=== PATIENT | male | born 1945 | race Caucasian/White ===

== ENCOUNTER → 2020-11-17 | Outpatient (CLI) | payer OTHER ==
--- NOTE | 2020-11-17 11:55 | XR ---
EXAMINATION TYPE: XR foot complete LT DATE OF EXAM: 11/17/2020 CLINICAL HISTORY: Pain worse first toe after contusion injury 2 weeks ago. TECHNIQUE: Frontal, lateral, and oblique images of the left foot are obtained. COMPARISON: None FINDINGS: There is subtle linear lucency consistent with comminuted subacute or healing nondisplaced fracture through the proximal phalanx first toe this is best appreciated on lateral view. Moderate to severe narrowing of first metatarsophalangeal joint with moderate lateral spurring. Tiny inferior calcaneal spur. Curvilinear calcification or ossification superior posterior calcaneus at the distal Achilles tendon insertion. Overlying soft tissue is unremarkable. IMPRESSION: There is healing or subacute nondisplaced fracture is suspected involving first proximal phalanx.
== END | disposition home or self-care (01) ==
LOC: RADXRMAIN 11:17
PROVIDERS: ATTEND Family Medicine
DX: S90.112A Contusion of left great toe without damage to nail, initial encounter (principal)

== ENCOUNTER → 2020-12-03 | Outpatient (CLI) | payer OTHER ==
--- NOTE | 2020-12-03 14:13 | XR ---
EXAMINATION TYPE: XR foot complete LT DATE OF EXAM: 12/03/2020 CLINICAL HISTORY: First proximal phalanx fracture TECHNIQUE: Frontal, lateral, and oblique images of the left foot are obtained. COMPARISON: 11/17/2020 FINDINGS: No significant change seen in the complex-appearing fracture of the proximal phalanx of the great toe. Degenerative changes of the first MTP are noted. IMPRESSION: No significant change seen in the complex-appearing fracture of the proximal phalanx of the great toe . Degenerative changes of the first MTP are noted.
== END | disposition home or self-care (01) ==
LOC: RADXRMAIN 13:50
PROVIDERS: ATTEND Family Medicine
DX: S92.415A Nondisplaced fracture of proximal phalanx of left great toe, initial encounter for closed fracture (principal); M19.072 Primary osteoarthritis, left ankle and foot

== ENCOUNTER → 2020-12-20 | Outpatient (CLI) | payer OTHER ==
--- NOTE | 2020-12-20 13:17 | XR ---
EXAMINATION TYPE: XR foot complete LT DATE OF EXAM: 12/20/2020 CLINICAL HISTORY: Fracture first proximal metatarsal 6 weeks ago TECHNIQUE: Frontal, lateral, and oblique images of the left foot are obtained. COMPARISON: 12/03/2020 FINDINGS: There is bony remodeling of the proximal phalanx of the great toe with fracture lines still present a nd with likely intra-articular extension into the interphalangeal joint. Degenerative changes are again seen in the first metatarsal-phalangeal joint. IMPRESSION: No significant change since the prior examination with fracture of the proximal phalanx of the great toe.
== END | disposition home or self-care (01) ==
LOC: RADXRMAIN 12:42
PROVIDERS: ATTEND Family Medicine
DX: S92.411A Displaced fracture of proximal phalanx of right great toe, initial encounter for closed fracture (principal)

== ENCOUNTER 2022-04-22 18:00 | Inpatient (IN) | payer MEDICARE, OTHER ==
[2022-04-22 18:48] LABS: Basophils # (A) 0.1 k/uL (0-0.2); Basophils % (A) 1 %; Eosinophils # (A) 0.1 k/uL (0-0.7); Eosinophils % (A) 1 %; HCT 50.1 % (39.0-53.0); HGB 16.7 gm/dL (13.0-17.5); Lymphocytes # (A) 0.6 k/uL (1.0-4.8); Lymphocytes % (A) 5 %; MCH 30.9 pg (25.0-35.0); MCHC 33.3 g/dL (31.0-37.0); MCV 92.6 fL (80.0-100.0); Monocytes # (A) 0.5 k/uL (0-1.0); Monocytes % (A) 4 %; Neutrophils # (A) 11.5 k/uL (1.3-7.7); Neutrophils % (A) 89 %; Platelet Count 367 k/uL (150-450); RBC 5.41 m/uL (4.30-5.90); RDW 13.3 % (11.5-15.5); WBC 12.9 k/uL (3.8-10.6)
[2022-04-22 18:57] LABS: ALT 29 U/L (4-49); AST 29 U/L (17-59); African American GFR (CKD) >90 (>60 ml/min/1.73 sqM); Albumin 4.1 g/dL (3.5-5.0); Alkaline Phosphatase 82 U/L (38-126); Anion Gap 9 mmol/L; Blood Urea Nitrogen 12 mg/dL (9-20); Calcium 9.6 mg/dL (8.4-10.2); Carbon Dioxide 25 mmol/L (22-30); Chloride 105 mmol/L (98-107); Glucose 123 mg/dL (74-99); Non-African American GFR(CKD) 81 (>60 ml/min/1.73 sqM); Potassium 4.1 mmol/L (3.5-5.1); Sodium 139 mmol/L (137-145); Total Bilirubin 0.6 mg/dL (0.2-1.3); Total Protein 7.2 g/dL (6.3-8.2)
[2022-04-22 19:01] LABS: Partial Thromboplastin Time 25.5 sec (22.0-30.0); Prothrombin Time 11.1 sec (9.0-12.0)
--- NOTE | 2022-04-22 19:02 | XR ---
EXAMINATION TYPE: XR chest 2V DATE OF EXAM: 04/22/2022 COMPARISON: NONE HISTORY: Difficulty breathing TECHNIQUE: 2 views FINDINGS: There is some pleural reaction and atelectasis at the lung bases. There are small pleural e ffusions. No definite heart failure. Heart appears slightly enlarged. There are chest leads. IMPRESSION: Pleural fluid and reaction and atelectasis at the lung bases is new compared to old exam. No definite heart failure.
[2022-04-22] MEDS ORDERED: NALOXONE 0.4 MG/ML 1 ML VIAL IV PRN (22:02)
--- NOTE | 2022-04-22 22:02 | ED ---
SOB HPI - General Chief Complaint: Shortness of Breath Stated Complaint: SOB Time Seen by Provider: 04/22/22 18:02 Source: EMS Mode of arrival: EMS - History of Present Illness Initial Comments: 77-year-old male with enlarged prostate presents to the emergency department reporting exertional shortness of breath. He reports that the symptoms have been progressive for the past several weeks. 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 States that he cannot get up and ambulate a few steps without becoming short of breath. He reported to EMS that he had some chest pain however denies any chest pain to me. Did have some nausea earlier today. He denies previous history of cardiac or pulmonary issues. He saw his primary care 1.5 weeks ago for these symptoms. He has never had a stress test or an ultrasound of his heart. Patient is not a smoker. No fevers, chills or cough. No other alleviating, precipitating modifying factors - Related Data Home Medications Medication Instructions Recorded Confirmed Finasteride [Proscar] 5 mg PO DAILY 04/07/15 04/23/22 Tamsulosin HCl [Flomax] 0.4 mg PO DAILY 04/07/15 04/23/22 ALPRAZolam [Xanax] 0.5 mg PO HS PRN 04/23/22 04/23/22 Allergies Allergy/AdvReac Type Severity Reaction Status Date / Time Penicillins Allergy Unknown Verified 04/23/22 12:31 Childhood Review of Systems ROS Statement: Those systems with pertinent positive or pertinent negative responses have been documented in the HPI. ROS Other: All systems not noted in ROS Statement are negative. Past Medical History Past Medical History: No Reported History Additional Past Medical History / Comment(s): enlarged prostate History of Any Multi-Drug Resistant Organisms: None Reported Past Surgical History: Hernia Repair Past Psychological History: No Psychological Hx Reported Smoking Status: Former smoker Past Alcohol Use History: Occasional Past Drug Use History: None Reported - Past Family History Father History Unknown: Yes Mother History Unknown: Yes General Exam General appearance: alert, in no apparent distress Head exam: Present: atraumatic, normocephalic, normal inspection Eye exam: Present: normal appearance, PERRL, EOMI. Absent: scleral icterus, conjunctival injection, periorbital swelling ENT exam: Present: normal exam, mucous membranes moist Neck exam: Present: normal inspection. Absent: tenderness, meningismus, ly mphadenopathy Respiratory exam: Present: normal lung sounds bilaterally. Absent: respiratory distress, wheezes, rales, rhonchi, stridor Cardiovascular Exam: Present: regular rate, normal rhythm, normal heart sounds. Absent: systolic murmur, diastolic murmur, rubs, gallop, clicks GI/Abdominal exam: Present: soft, normal bowel sounds. Absent: distended, tenderness, guarding, rebound, rigid Extremities exam: Present: normal inspection, full ROM, normal capillary refill. Absent: tenderness, pedal edema, joint swelling, calf tenderness Back exam: Present: normal inspection Neurological exam: Present: alert, oriented X3, CN II-XII intact Psychiatric exam: Present: normal affect, normal mood Skin exam: Present: warm, dry, intact, normal color. Absent: rash Course Vital Signs 04/22/22 04/22/22 04/22/22 18:03 18:55 19:00 Temperature 99.0 F Pulse Rate 92 82 Pulse Rate [ Pulse Oximetery ] Respiratory 18 18 18 Rate Blood Pressure 193/96 168/86 Blood Pressure [Right Arm] O2 Sat by Pulse 95 95 Oximetry 04/22/22 04/22/22 04/23/22 20:39 22:56 02:30 Temperature 97.9 F Pulse Rate 85 72 72 Pulse Rate [ Pulse Oximetery ] Respiratory 18 18 18 Rate Blood Pressure 175/83 161/70 170/86 Blood Pressure [Right Arm] O2 Sat by Pulse 95 98 95 Oximetry 04/23/22 04/23/22 04/23/22 06:26 09:44 10:03 Temperature Pulse Rate 78 78 80 Pulse Rate [ Pulse Oximetery ] Respiratory 18 18 18 Rate Blood Pressure 186/90 Blood Pressure [Right Arm] O2 Sat by Pulse 99 96 98 Oximetry 04/23/22 04/23/22 04/23/22 12:00 14:00 16:00 Temperature 97.9 F Pulse Rate Pulse Rate [ 88 80 80 Pulse Oximetery ] Respiratory 18 16 16 Rate Blood Pressure Blood Pressure 185/92 182/95 [Right Arm] O2 Sat by Pulse 94 L 97 Oximetry Medical Decision Making - Medical Decision Making Upon arrival patient was placed into room 5. There are history of physical exam was performed. Patient placed on continuous pulse ox and cardiac monitoring. 12-lead EKG was obtained which demonstrates a left bundle branch block. Unknown if this is new for the patient. IV access was established laboratory studies were conducted. They are reviewed to demonstrate a troponin of 0.042. Influenza ankle are negative. Chest x-ray demonstrates pleural fluid and reaction and atelectasis at the lung bases. These results are discussed with the patient. He was given a full dose aspirin. Recommended admission order to trend his troponins throat the patient was agreeable. Additionally we'll order an echo and cardiology consultation. Spoke with Dr. Cook who agreed to admit the patient - Lab Data Result diagrams: 04/24/22 10:52 04/24/22 10:52 Lab Results 04/22/22 04/22/22 04/22/22 Range/Units 18:36 18:36 18:36 WBC 12.9 H (3.8-10.6) k/uL RBC 5.41 (4.30-5.90) m/uL Hgb 16.7 (13.0-17.5) gm/dL Hct 50.1 (39.0-53.0) % MCV 92.6 (80.0-100.0) fL MCH 30.9 (25.0-35.0) pg MCHC 33.3 (31.0-37.0) g/dL RDW 13.3 (11.5-15.5) % Plt Count 367 (150-450) k/uL MPV 7.0 Neutrophils % 89 % Lymphocytes % 5 % Monocytes % 4 % Eosinophils % 1 % Basophils % 1 % Neutrophils # 11.5 H (1.3-7.7) k/uL Lymphocytes # 0.6 L (1.0-4.8) k/uL Monocytes # 0.5 (0-1.0) k/uL Eosinophils # 0.1 (0-0.7) k/uL Basophils # 0.1 (0-0.2) k/uL PT 11.1 (9.0-12.0) sec INR 1.0 (<1.2) APTT 25.5 (22.0-30.0) sec D-Dimer 0.42 (<0.60) mg/L FEU Sodium 139 (137-145) mmol/L Potassium 4.1 (3.5-5.1) mmol/L Chloride 105 (98-107) mmol/L Carbon Dioxide 25 (22-30) mmol/L Anion Gap 9 mmol/L BUN 12 (9-20) mg/dL Creatinine 0.90 (0.66-1.25) mg/dL Est GFR (CKD-EPI)AfAm >90 (>60 ml/min/1.73 sqM) Est GFR (CKD-EPI)NonAf 81 (>60 ml/min/1.73 sqM) Glucose 123 H (74-99) mg/dL Plasma Lactic Acid Bronson (0.7-2.0) mmol/L Calcium 9.6 (8.4-10.2) mg/dL Magnesium 2.0 (1.6-2.3) mg/dL Total Bilirubin 0.6 (0.2-1.3) mg/dL AST 29 (17-59) U/L ALT 29 (4-49) U/L Alkaline Phosphatase 82 (38-126) U/L Troponin I (0.000-0.034) ng/mL NT-Pro-B Natriuret Pep pg/mL Total Protein 7.2 (6.3-8.2) g/dL Albumin 4.1 (3.5-5.0) g/dL Coronavirus (PCR) (Not Detectd) Influenza Type A RNA (Not Detectd) Influenza Type B (PCR) (Not Detectd) 04/22/22 04/22/22 04/22/22 Range/Units 18:36 18:36 18:36 WBC (3.8-10.6) k/uL RBC (4.30-5.90) m/uL Hgb (13.0-17.5) gm/dL Hct (39.0-53.0) % MCV (80.0-100.0) fL MCH (25.0-35.0) pg MCHC (31.0-37.0) g/dL RDW (11.5-15.5) % Plt Count (150-450) k/uL MPV Neutrophils % % Lymphocytes % % Monocytes % % Eosinophils % % Basophils % % Neutrophils # (1.3-7.7) k/uL Lymphocytes # (1.0-4.8) k/uL Monocytes # (0-1.0) k/uL Eosinophils # (0-0.7) k/uL Basophils # (0-0.2) k/uL PT (9.0-12.0) sec INR (<1.2) APTT (22.0-30.0) sec D-Dimer (<0.60) mg/L FEU Sodium (137-145) mmol/L Potassium (3.5-5.1) mmol/L Chloride (98-107) mmol/L Carbon Dioxide (22-30) mmol/L Anion Gap mmol/L BUN (9-20) mg/dL Creatinine (0.66-1.25) mg/dL Est GFR (CKD-EPI)AfAm (>60 ml/min/1.73 sqM) Est GFR (CKD-EPI)NonAf (>60 ml/min/1.73 sqM) Glucose (74-99) mg/dL Plasma Lactic Acid Bronson 1.4 (0.7-2.0) mmol/L Calcium (8.4-10.2) mg/dL Magnesium (1.6-2.3) mg/dL Total Bilirubin (0.2-1.3) mg/dL AST (17-59) U/L ALT (4-49) U/L Alkaline Phosphatase (38-126) U/L Troponin I 0.042 H* (0.000-0.034) ng/mL NT-Pro-B Natriuret Pep 1450 pg/mL Total Protein (6.3-8.2) g/dL Albumin (3.5-5.0) g/dL Coronavirus (PCR) (Not Detectd) Influenza Type A RNA (Not Detectd) Influenza Type B (PCR) (Not Detectd) 04/22/22 04/22/22 Range/Units 18:36 18:36 WBC (3.8-10.6) k/uL RBC (4.30-5.90) m/uL Hgb (13.0-17.5) gm/dL Hct (39.0-53.0) % MCV (80.0-100.0) fL MCH (25.0-35.0) pg MCHC (31.0-37.0) g/dL RDW (11.5-15.5) % Plt Count (150-450) k/uL MPV Neutrophils % % Lymphocytes % % Monocytes % % Eosinophils % % Basophils % % Neutrophils # (1.3-7.7) k/uL Lymphocytes # (1.0-4.8) k/uL Monocytes # (0-1.0) k/uL Eosinophils # (0-0.7) k/uL Basophils # (0-0.2) k/uL PT (9.0-12.0) sec INR (<1.2) APTT (22.0-30.0) sec D-Dimer (<0.60) mg/L FEU Sodium (137-145) mmol/L Potassium (3.5-5.1) mmol/L Chloride (98-107) mmol/L Carbon Dioxide (22-30) mmol/L Anion Gap mmol/L BUN (9-20) mg/dL Creatinine (0.66-1.25) mg/dL Est GFR (CKD-EPI)AfAm (>60 ml/min/1.73 sqM) Est GFR (CKD-EPI)NonAf (>60 ml/min/1.73 sqM) Glucose (74-99) mg/dL Plasma Lactic Acid Bronson (0.7-2.0) mmol/L Calcium (8.4-10.2) mg/dL Magnesium (1.6-2.3) mg/dL Total Bilirubin (0.2-1.3) mg/dL AST (17-59) U/L ALT (4-49) U/L Alkaline Phosphatase (38-126) U/L Troponin I (0.000-0.034) ng/mL NT-Pro-B Natriuret Pep pg/mL Total Protein (6.3-8.2) g/dL Albumin (3.5-5.0) g/dL Coronavirus (PCR) Not Detected (Not Detectd) Influenza Type A RNA Not Detected (Not Detectd) Influenza Type B (PCR) Not Detected (Not Detectd) - EKG Data EKG Comments: EKG demonstrates sinus rhythm with a rate of 87. W[place] interval 219. QRS 153. QTC of 445. There is a left bundle branch block. Negative for sgarbossa criteria Disposition Clinical Impression: NSTEMI (non-ST elevated myocardial infarction), Exertional dyspnea, LBBB (left bundle branch block) Disposition: ADMITTED IP TO THIS HOSP Condition: Stable Is patient prescribed a controlled substance at d/c from ED?: No Time of Disposition: 22:02 Decision to Admit Reason: Admit from EC Decision Date: 04/22/22 Decision Time: 22:02
[2022-04-22] MEDS ORDERED: ASPIRIN 81 MG PO STA (22:04)
[2022-04-23 01:37] LABS: Basophils # (A) 0.1 k/uL (0-0.2); Basophils % (A) 1 %; Eosinophils # (A) 0.1 k/uL (0-0.7); Eosinophils % (A) 1 %; HCT 44.8 % (39.0-53.0); Lymphocytes % (A) 10 %; MCH 31.1 pg (25.0-35.0); MCHC 33.4 g/dL (31.0-37.0); Mean Platelet Volume 7.4; Monocytes # (A) 0.7 k/uL (0-1.0); Monocytes % (A) 7 %; Neutrophils # (A) 8.6 k/uL (1.3-7.7); Neutrophils % (A) 80 %; Platelet Count 362 k/uL (150-450); RBC 4.82 m/uL (4.30-5.90); RDW 13.3 % (11.5-15.5); WBC 10.7 k/uL (3.8-10.6)
[2022-04-23 01:46] LABS: African American GFR (CKD) >90 (>60 ml/min/1.73 sqM); Anion Gap 6 mmol/L; Blood Urea Nitrogen 12 mg/dL (9-20); Calcium 9.1 mg/dL (8.4-10.2); Carbon Dioxide 26 mmol/L (22-30); Chloride 107 mmol/L (98-107); Glucose 101 mg/dL (74-99); Non-African American GFR(CKD) 81 (>60 ml/min/1.73 sqM); Potassium 3.6 mmol/L (3.5-5.1); Sodium 139 mmol/L (137-145)
[2022-04-23] MEDS ORDERED: CAFFEINE CITRATE 60 MG/3 ML VIAL IV PRN (09:43)
[2022-04-23] MEDS ORDERED: AMINOPHYLLINE 500 MG/20 ML VIAL IV PRN (09:43)
[2022-04-23] MEDS: FUROSEMIDE 10 MG/ML 2 ML VIAL IV SCH (09:54)
[2022-04-23] MEDS ORDERED: Potassium Replacement Protocol 1 EACH MISC MISCELLANE PRN (14:49)
[2022-04-23] MEDS ORDERED: POTASSIUM CHLORIDE ER 20 MEQ TAB.ER PO SCH (15:00)
--- NOTE | 2022-04-23 16:08 | P.CRDCN ---
History of Present Illness Consult date: 04/23/22 History of present illness: History of present illness: This is a 77-year-old male with no previous cardiac history. Past medical history of benign prostatic hypertrophy and follows with urologist at [place]. He recently had medication changes finasteride versus Flomax. Patient complains of exertional dyspnea, chest pain and nausea. He states he has tightness in his chest with shortness of breath at the same time. He states his shortness of breath has been going on for the past 1-1/2 weeks along with cough and clear sputum production, nasal drainage. He denies chest pain at rest and denies orthopnea. He recently saw Dr. Gerber and started on Xanax. 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 Patient has a remote history of tobacco use and quit 40 years ago. EKG sinus rhythm with first-degree block and left bundle branch block WBC 12.9, hemoglobin 16.7. D-dimer 0.42. Creatinine 0.9. Troponin 0.042, 0.049, 0.045. ProBNP 1450 Rotavirus PCR not detected. Influenza a not detected. Influenza B not detected. Chest x-ray revealed pleural fluid reactive and atelectasis at lung bases. No definite heart failure Review Of Systems: Constitutional: No fever, no chills. No weakness, fatigue or lethargy. EENT: No headache. No dizziness. Reports nasal drainage. Lungs: Reports shortness of breath, reports cough, reports sputum production. No wheezing. Cardiovascular: No chest pain, no lower extremity edema. No palpitations. No paroxysmal nocturnal dyspnea. No orthopnea. No lightheadedness or dizziness. No syncopal episodes. Abdominal: No abdominal pain. No nausea, vomiting. No diarrhea. No constipation. No bloody or tarry stools.. No loss of appetite. Genitourinary: No dysuria.. No urinary retention. Musculoskeletal: No myalgias. No muscle weakness, no gait dysfunction, no frequent falls. No back pain. No neck pain. Integumentary: No wounds, no lesions. No rash or pruritus. No unusual bruising. Neurologic: No aphasia. No facial droop. No change in mentation. No head injury. No headache. No paralysis. No paresthesia. Psychiatric: No depression. No anxiety. Endocrine: No abnormal blood sugars. Physical examination: Gen: This is a 77-year-old male. He is coughing and sneezing frequently. VS: Afebrile, blood pressure 185/92, pulse ox 94% on room air. Heart rate in the 80s. HEENT: Head is atraumatic, normocephalic. Pupils equal, round. Sclerae is anicteric. NECK: Supple. No JVD. No lymphadenopathy. No thyromegaly. LUNGS: Few scattered expiratory wheeze. No intercostal retractions. HEART: Regular rate and rhythm. No murmur. ABDOMEN: Soft. Bowel sounds are present. No masses. No tenderness. EXTREMITIES: No pedal edema. No calf tenderness. Dorsalis pedis +2 bilaterally. NEUROLOGICAL: Patient is awake, alert and oriented x3. Cranial nerves 2 through 12 are grossly intact. Assessment: Elevated troponins Mild acute diastolic heart failure Hypertension Upper respiratory symptoms Plan: Patient will be started on Lasix 20 mg IV daily Obtain Lexiscan Cardiolite stress test tomorrow Obtain 2-D echocardiogram and Doppler study to assess cardiac structure and function Further recommendations to follow based upon clinical course Patient will follow-up with Dr. Dominick Christianson at the time of discharge. Thank you kindly for this consultation. Nurse practitioner note has been reviewed, I agree with documented findings and plan of care. Patient was seen and examined. Past Medical History Past Medical History: No Reported History Additional Past Medical History / Comment(s): enlarged prostate History of Any Multi-Drug Resistant Organisms: None Reported Past Surgical History: Hernia Repair Past Psychological History: No Psychological Hx Reported Smoking Status: Former smoker Past Alcohol Use History: Occasional Past Drug Use History: None Reported - Past Family History Father History Unknown: Yes Mother History Unknown: Yes Medications and Allergies Home Medications Medication Instructions Recorded Confirmed Type Finasteride [Proscar] 5 mg PO DAILY 04/07/15 04/23/22 History Tamsulosin HCl [Flomax] 0.4 mg PO DAILY 04/07/15 04/23/22 History ALPRAZolam [Xanax] 0.5 mg PO HS PRN 04/23/22 04/23/22 History Allergies Allergy/AdvReac Type Severity Reaction Status Date / Time Penicillins Allergy Unknown Verified 04/23/22 12:31 Childhood Physical Exam Vitals: Vital Signs Temp Pulse Resp BP Pulse Ox 04/23/22 06:26 78 18 99 04/23/22 02:30 97.9 F 72 18 170/86 95 04/22/22 22:56 72 18 161/70 98 04/22/22 20:39 85 18 175/83 95 04/22/22 19:00 82 18 168/86 95 04/22/22 18:55 18 04/22/22 18:03 99.0 F 92 18 193/96 95 Intake and Output 04/22/22 04/23/22 04/23/22 22:59 06:59 14:59 Other: Weight 78.018 kg Results 04/23/22 01:21 04/23/22 01:21 Cardiac Enzymes 04/22/22 04/22/22 04/22/22 Range/Units 18:36 18:36 22:35 AST 29 (17-59) U/L Troponin I 0.042 H* 0.049 H* (0.000-0.034) ng/mL 04/23/22 Range/Units 01:21 AST (17-59) U/L Troponin I 0.045 H* (0.000-0.034) ng/mL Coagulation 04/22/22 Range/Units 18:36 PT 11.1 (9.0-12.0) sec APTT 25.5 (22.0-30.0) sec CBC 04/22/22 04/23/22 Range/Units 18:36 01:21 WBC 12.9 H 10.7 H (3.8-10.6) k/uL RBC 5.41 4.82 (4.30-5.90) m/uL Hgb 16.7 15.0 (13.0-17.5) gm/dL Hct 50.1 44.8 (39.0-53.0) % Plt Count 367 362 (150-450) k/uL Comprehensive Metabolic Panel 04/22/22 04/23/22 Range/Units 18:36 01:21 Sodium 139 139 (137-145) mmol/L Potassium 4.1 3.6 (3.5-5.1) mmol/L Chloride 105 107 (98-107) mmol/L Carbon Dioxide 25 26 (22-30) mmol/L BUN 12 12 (9-20) mg/dL Creatinine 0.90 0.90 (0.66-1.25) mg/dL Glucose 123 H 101 H (74-99) mg/dL Calcium 9.6 9.1 (8.4-10.2) mg/dL AST 29 (17-59) U/L ALT 29 (4-49) U/L Alkaline Phosphatase 82 (38-126) U/L Total Protein 7.2 (6.3-8.2) g/dL Albumin 4.1 (3.5-5.0) g/dL Current Medications Generic Name Dose Route Start Last Admin Trade Name Freq PRN Reason Stop Dose Admin Naloxone HCl 0.2 mg 04/22/22 22:02 Naloxone 0.4 Mg/Ml 1 Ml Vial IV Q2M PRN Opioid Reversal Intake and Output 04/22/22 04/23/22 04/23/22 22:59 06:59 14:59 Other: Weight 78.018 kg 04/23/22 01:21 04/23/22 01:21
[2022-04-23] MEDS: lisinopriL 5 MG TAB PO SCH (16:40)
--- NOTE | 2022-04-23 21:40 | P.HPIM ---
History of Present Illness H&P Date: 04/23/22 Chief Complaint: Exertional shortness of breath Patient is a 77-year-old male with a known history of enlarged prostate presents to ER with complaints of exertional shortness of breath. Patient has been having symptoms for the past 1/2-week. Patient states that he was seen by urologist and was started on terazosin. Patient thought his symptoms are due to his medication. He has been having shortness of breath and wheezing. Shortness of breath With minimal exertion and walking. 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 Terazosin was discontinued about few days ago and was started on Flomax currently. Patient is still having exertional shortness of breath and presented to ER for further evaluation. Denies any complaints of chest pain. Was nauseated. No chills or vomiting. Denies any orthopnea or PND. No leg swelling. Patient was seen by his primary care physician who started on Xanax recently. No prior history of coronary artery disease. EKG showed first-degree heart block and left bundle branch block. Old EKG not available for comparison. Chest x-ray showed pleural fluid and reaction and atelectasis at the lung bases is new compared to old exam. No definite heart failure. Laboratory data showed WBC 12.9 hemoglobin 16.7 and platelets 367 D-dimer is 0.42 Sodium 139 potassium 4.1 chloride 105 bicarb is 25 BUN 12 and creatinine 0.9 and blood sugar is 123 Liver enzymes are elevated Troponin 0.042, 0.049 and 0.045 proBNP is 1450 Coronavirus PCR not detected. Review of Systems Constitutional: Patient denies any fever or chills . no Generalized weakness. Abdomen: Patient denied any nausea or vomiting or abd. pain Cardiovascular: Patient does have exertional shortness of breath. No chest pain. No palpitations no leg swelling. Respiratory: patient denied any cough . no sputum production. Positive for shortness of breath Neurologic: Patient denied any numbness or tingling headache. Musculoskeletal: Patient denies any complaints of joint swelling or deformity. Skin: Negative Psychiatric: Negative Endocrine: No heat or cold intolerance. No recent weight gain. Genitourinary: No dysuria or hematuria. All other 14 point ROS negative except the above Past Medical History Past Medical History: No Reported History Additional Past Medical History / Comment(s): enlarged prostate History of Any Multi-Drug Resistant Organisms: None Reported Past Surgical History: Hernia Repair Past Psychological History: No Psychological Hx Reported Smoking Status: Former smoker Past Alcohol Use History: Occasional Past Drug Use History: None Reported - Past Family History Father History Unknown: Yes Mother History Unknown: Yes Medications and Allergies Home Medications Medication Instructions Recorded Confirmed Type Finasteride [Proscar] 5 mg PO DAILY 04/07/15 04/23/22 History Tamsulosin HCl [Flomax] 0.4 mg PO DAILY 04/07/15 04/23/22 History ALPRAZolam [Xanax] 0.5 mg PO HS PRN 04/23/22 04/23/22 History Allergies Allergy/AdvReac Type Severity Reaction Status Date / Time Penicillins Allergy Unknown Verified 04/23/22 12:31 Childhood Physical Exam Vitals: Vital Signs Temp Pulse Resp BP Pulse Ox 04/23/22 10:03 80 18 186/90 98 04/23/22 09:44 78 18 96 04/23/22 06:26 78 18 99 04/23/22 02:30 97.9 F 72 18 170/86 95 04/22/22 22:56 72 18 161/70 98 04/22/22 20:39 85 18 175/83 95 04/22/22 19:00 82 18 168/86 95 04/22/22 18:55 18 04/22/22 18:03 99.0 F 92 18 193/96 95 Intake and Output 04/22/22 04/23/22 04/23/22 22:59 06:59 14:59 Other: Weight 78.018 kg PHYSICAL EXAMINATION: Patient is lying in the bed comfortably, no acute distress, awake alert and oriented.. HEENT: Normocephalic. Neck is supple. Pupils reactive. Nostrils clear. Oral cavity is moist. Neck reveals no JVD, carotid bruits, or thyromegaly. CHEST EXAMINATION: Trachea is central. Symmetrical expansion. Lung mcclellan clear to auscultation and percussion. CARDIAC: Normal S1, S2 with no gallops. No murmurs ABDOMEN: Soft. Bowel sounds present. Nontender. No organomegaly. No abdominal bruits. Extremities: reveal no edema. No clubbing or cyanosis Neurologically awake, alert, oriented x3 with well-coordinated movements. No focal deficits noted Skin: No rash or skin lesions. Psychiatric: Coperative. Nonsuicidal, Musculoskeletal: No joint swelling or deformity. Normal range of motion. Results CBC & Chem 7: 04/23/22 01:21 04/23/22 01:21 Labs: Abnormal Lab Results - Last 24 Hours (Table) 04/22/22 04/22/22 04/22/22 Range/Units 18:36 18:36 18:36 WBC 12.9 H (3.8-10.6) k/uL Neutrophils # 11.5 H (1.3-7.7) k/uL Lymphocytes # 0.6 L (1.0-4.8) k/uL Glucose 123 H (74-99) mg/dL Troponin I 0.042 H* (0.000-0.034) ng/mL 04/22/22 04/23/22 04/23/22 Range/Units 22:35 01:21 01:21 WBC 10.7 H (3.8-10.6) k/uL Neutrophils # 8.6 H (1.3-7.7) k/uL Lymphocytes # (1.0-4.8) k/uL Glucose (74-99) mg/dL Troponin I 0.049 H* 0.045 H* (0.000-0.034) ng/mL 04/23/22 Range/Units 01:21 WBC (3.8-10.6) k/uL Neutrophils # (1.3-7.7) k/uL Lymphocytes # (1.0-4.8) k/uL Glucose 101 H (74-99) mg/dL Troponin I (0.000-0.034) ng/mL Thrombosis Risk Factor Assmnt - DVT/VTE Prophylaxis DVT/VTE Prophylaxis: Pharmacologic Prophylaxis ordered Assessment and Plan Assessment: Exertional shortness of breath with elevated troponin level. Possible non-ST elevated MD cannot be excluded. Mild acute CHF. Ejection fraction not known Elevated blood pressure. No prior history of hypertension diagnosis BPH DVT prophylaxis Plan: Patient will be continued on telemetry monitoring. Serial EKG and troponin x3. Patient was started on heparin drip. Troponin level plateaued. Patient was seen by cardiology and recommends Lexiscan stress test., Which is scheduled tomorrow. Continue to follow closely. Discussed with the patient and his at bedside in detail Time with Patient: Greater than 30
[2022-04-23] MEDS: ALPRAZolam 0.5 MG TAB PO PRN (22:08)
[2022-04-23] MEDS: HEPARIN SODIUM,PORCINE/PF 5,000 UNIT/0.5 ML SYRINGE SQ SCH (22:14)
[2022-04-24] MEDS ORDERED: RIVAROXABAN 20 MG TAB PO SCH (01:35)
[2022-04-24] MEDS: METOPROLOL SUCCINATE (ER) 50 MG TAB.ER.24H PO SCH ×2 (01:43→08:27)
[2022-04-24] MEDS ORDERED: REGADENOSON 0.4 MG/5 ML SYRINGE IV PRN (07:00)
[2022-04-24] MEDS: HEPARIN SODIUM,PORCINE/PF 5,000 UNIT/0.5 ML SYRINGE SQ SCH (07:56)
[2022-04-24] MEDS: FUROSEMIDE 10 MG/ML 2 ML VIAL IV SCH (08:27)
[2022-04-24] MEDS: TAMSULOSIN 0.4 MG CAP.ER.24H PO SCH (08:27)
[2022-04-24] MEDS: lisinopriL 5 MG TAB PO SCH (08:27)
[2022-04-24] MEDS ORDERED: HEPARIN SODIUM 1,000 UN/ML (10ML VL) IV ONE (10:19)
[2022-04-24] MEDS ORDERED: HEPARIN SODIUM 1,000 UN/ML (10ML VL) IV PRN (10:19)
[2022-04-24] MEDS: HEPARIN SOD,PORK IN 0.45% NACL 25,000 UNIT in 0.45% NACL 1 250ML.BAG IV SCH (11:00)
[2022-04-24] MEDS ORDERED: ALPRAZolam 0.5 MG TAB PO PRN (11:23)
[2022-04-24] MEDS ORDERED: NITROGLYCERIN SL TABS 0.4 MG TAB SUBLINGUAL PRN (11:23)
[2022-04-24] MEDS ORDERED: ALPRAZolam 0.25 MG TAB PO PRN (11:23)
[2022-04-24 11:36] LABS: Basophils # (A) 0.1 k/uL (0-0.2); Basophils % (A) 1 %; Eosinophils # (A) 0.2 k/uL (0-0.7); Eosinophils % (A) 2 %; HCT 47.7 % (39.0-53.0); HGB 15.8 gm/dL (13.0-17.5); Lymphocytes % (A) 12 %; MCH 31.1 pg (25.0-35.0); MCHC 33.2 g/dL (31.0-37.0); MCV 93.5 fL (80.0-100.0); Mean Platelet Volume 7.4; Monocytes # (A) 0.6 k/uL (0-1.0); Monocytes % (A) 7 %; Neutrophils # (A) 6.7 k/uL (1.3-7.7); Neutrophils % (A) 77 %; Platelet Count 388 k/uL (150-450); RDW 13.2 % (11.5-15.5); WBC 8.6 k/uL (3.8-10.6)
--- NOTE | 2022-04-24 11:47 | P.PN ---
Subjective Progress Note Date: 04/24/22 HISTORY OF PRESENT ILLNESS: This is a 77-year-old male with no previous cardiac history. Past medical history of benign prostatic hypertrophy and follows with urologist at [place]. He recently had medication changes finasteride versus Flomax. Patient complains of exertional dyspnea, chest pain and nausea. He states he has tightness in his chest with shortness of breath at the same time. He states his shortness of breath has been going on for the past 1-1/2 weeks along with cough and clear sputum production, nasal drainage. He denies chest pain at rest and denies orthopnea. He recently saw Dr. Gerber and started on Xanax. 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 Patient has a remote history of tobacco use and quit 40 years ago. EKG sinus rhythm with first-degree block and left bundle branch block WBC 12.9, hemoglobin 16.7. D-dimer 0.42. Creatinine 0.9. Troponin 0.042, 0.049, 0.045. ProBNP 1450 Rotavirus PCR not detected. Influenza a not detected. Influenza B not detected. Chest x-ray revealed pleural fluid reactive and atelectasis at lung bases. No definite heart failure 04/24/2022 Patient examined this morning at the bedside. Patient's spouse is present. Patient was found to have atrial fibrillation overnight. The patient denies a history of atrial fib relation. This morning the patient remains in atrial fibrillation ablation with controlled ventricular rates in the 70s. He was started on Toprol. He was also started on Xarelto. Preliminary echocardiogram reveals reduced ejection fraction around 20% PHYSICAL EXAM: VITAL SIGNS: Reviewed. GENERAL: Well-developed in no acute distress. NECK: Supple. No JVD or thyromegaly LUNGS: Respirations even and unlabored. Lungs essentially clear to auscultation bilaterally. HEART: Irregular rate and rhythm. S1 and S2 heard. EXTREMITIES: Normal range of motion. No clubbing or cyanosis. Peripheral pu lses intact. No lower extremity edema ASSESSMENT: Acute heart failure with reduced ejection fraction New-onset cardiomyopathy, type unknown New-onset atrial fibrillation with RVR, currently rate controlled Abnormal troponins, not suggestive of acute coronary syndrome Hypertension PLAN: Await final results of echocardiogram Discontinue Xarelto for now. Begin IV heparin. Continue lisinopril and metoprolol Discontinue IV Lasix. Begin oral Lasix 20 mg daily Check lipid panel Nothing by mouth at midnight Patient to undergo cardiac catheterization tomorrow with Dr. Jaime to evaluate etiology of cardiomyopathy Further recommendations per patient's course Nurse practitioner note has been reviewed by physician. Signing provider agrees with the documented findings, assessment, and plan of care. Objective - Vital Signs Vital signs: Vital Signs Temp 98 F 04/23/22 20:00 Pulse 77 04/24/22 10:04 Resp 18 04/24/22 10:04 BP 140/81 04/24/22 07:59 Pulse Ox 97 04/24/22 07:59 FiO2 Intake & Output 04/23/22 04/24/22 04/24/22 18:59 06:59 18:59 Intake Total 540 0 Balance 540 0 Weight 82.6 kg Intake: Oral 540 0 Other: Voiding Method Toilet Toilet Toilet Diaper Diaper Diaper # Voids 2 1 - Labs CBC & Chem 7: 04/24/22 10:52 04/23/22 01:21
[2022-04-24 11:51] LABS: African American GFR (CKD) 79 (>60 ml/min/1.73 sqM); Anion Gap 8 mmol/L; Blood Urea Nitrogen 14 mg/dL (9-20); Calcium 9.1 mg/dL (8.4-10.2); Carbon Dioxide 26 mmol/L (22-30); Chloride 107 mmol/L (98-107); Glucose 97 mg/dL (74-99); Non-African American GFR(CKD) 68 (>60 ml/min/1.73 sqM); Potassium 4.1 mmol/L (3.5-5.1); Sodium 141 mmol/L (137-145)
[2022-04-24 12:00] LABS: INR 1.2 (<1.2); Partial Thromboplastin Time 32.1 sec (22.0-30.0); Prothrombin Time 12.8 sec (9.0-12.0)
--- NOTE | 2022-04-24 12:43 | CA ---
Transthoracic Echo Report Name: Silvano Ty Age: 77 Gender: M : 1945 Exam Date: 04/24/2022 08:45 Exam Location: [place] [facility] Ht (in): 60 Wt (lb): 182 Ordering Physician: Aundrea Lindsey DO Attending/Referring Phys: [id number], [employer] Darcy Handy, RDJONATHAN Procedure CPT: Indications: exertional dyspnea Cardiac Hx: Technical Quality: Contrast 1: Total Dose (mL): Contrast 2: Total Dose (mL): MEASUREMENTS (Male / Female) Normal Values 2D ECHO LV Diastolic Diameter PLAX 4.7 cm 4.2 - 5.9 / 3.9 - 5.3 cm LV Systolic Diameter PLAX 3.9 cm IVS Diastolic Thickness 1.3 cm 0.6 - 1.0 / 0.6 - 0.9 cm LVPW Diastolic Thickness 1.3 cm 0.6 - 1.0 / 0.6 - 0.9 cm LV Relative Wall Thickness 0.6 LA Systolic Diameter LX 3.7 cm 3.0 - 4.0 / 2.7 - 3.8 cm LA Volume 100.0 cm??? 18 - 58 / 22 - 52 cm??? M-MODE MV E Point Septal Separation 2.1 cm DOPPLER AI Peak Velocity 291.4 cm/s AI Peak Gradient 34.0 mmHg AI Pressure Half Time 656.7 ms MV E' Velocity 2.3 cm/s FINDINGS Left Ventricle Mildly increased septal wall thickness. Left ventricular ejection fraction is estimated at 20-25 %.severely reduced global left ventricular systolic function. Right Ventricle Normal right ventricular size and function. Right Atrium Normal right atrial size. Left Atrium Severely increased left atrial volume. Mildly increased left atrial area. Mitral Valve Structurally normal mitral valve. Mild mitral regurgitation. Aortic Valve Trileaflet aortic valve. Mild aortic regurgitation.aortic valve sclerosis. Tricuspid Valve Structurally normal tricuspid valve. Mild tricuspid regurgitation. Pulmonic Valve Structurally normal pulmonic valve. Trace pulmonic regurgitation. Pericardium Small Pericardial effusion. Aorta Normal size aortic root and proximal ascending aorta. CONCLUSIONS 1. Severe global hypokinesis of the left ventricle 2. Mild mitral, aortic and tricuspid regurgitation Previewed by: Dr. Tiera Mckeon MD (Electronically Signed) Final Date: 24 April 2022 12:42
[2022-04-24 20:25] LABS: Chol/HDL Ratio 4.68 Ratio; LDL Cholesterol,Calculated 122.8 mg/dL (0.0-131.0)
[2022-04-24] MEDS: ALPRAZolam 0.5 MG TAB PO PRN (22:54)
[2022-04-25] MEDS ORDERED: ATORVASTATIN 80 MG TAB PO ONE (05:00)
[2022-04-25] MEDS ORDERED: ASPIRIN 325 MG TAB PO ONE (05:00)
[2022-04-25] MEDS: HEPARIN SOD,PORK IN 0.45% NACL 25,000 UNIT in 0.45% NACL 1 250ML.BAG IV SCH (05:39)
[2022-04-25 05:40] LABS: Glucose,Whole Blood 99 mg/dL (70-110)
[2022-04-25] MEDS: TAMSULOSIN 0.4 MG CAP.ER.24H PO SCH (05:40)
[2022-04-25] MEDS: METOPROLOL SUCCINATE (ER) 50 MG TAB.ER.24H PO SCH (05:40)
[2022-04-25] MEDS: SODIUM CHLORIDE 0.9% 1,000 ML in EMPTY BAG 1 BAG IV SCH ×2 (05:40→09:19)
[2022-04-25] MEDS: lisinopriL 5 MG TAB PO SCH (05:40)
[2022-04-25] MEDS ORDERED: HEPARIN SODIUM,PORCINE 10,000 UNIT in SODIUM CHLORIDE 0.9% 1,000 ML IRRIGATION PRN (07:00)
[2022-04-25] MEDS ORDERED: HEPARIN SODIUM,PORCINE 2,500 UNIT in SODIUM CHLORIDE 0.9% 250 ML IRRIGATION PRN (07:00)
[2022-04-25 07:34] LABS: Basophils # (A) 0.1 k/uL (0-0.2); Basophils % (A) 1 %; Eosinophils # (A) 0.3 k/uL (0-0.7); Eosinophils % (A) 3 %; HCT 44.5 % (39.0-53.0); HGB 14.6 gm/dL (13.0-17.5); Lymphocytes # (A) 1.4 k/uL (1.0-4.8); Lymphocytes % (A) 14 %; MCH 30.6 pg (25.0-35.0); MCHC 32.8 g/dL (31.0-37.0); MCV 93.3 fL (80.0-100.0); Mean Platelet Volume 7.3; Monocytes # (A) 0.6 k/uL (0-1.0); Monocytes % (A) 6 %; Neutrophils # (A) 7.7 k/uL (1.3-7.7); Neutrophils % (A) 75 %; Platelet Count 367 k/uL (150-450); RBC 4.77 m/uL (4.30-5.90); RDW 13.2 % (11.5-15.5); WBC 10.3 k/uL (3.8-10.6)
[2022-04-25 07:58] LABS: INR 1.1 (<1.2); Partial Thromboplastin Time 65.4 sec (22.0-30.0); Prothrombin Time 11.8 sec (9.0-12.0)
[2022-04-25] MEDS ORDERED: VERAPAMIL 2.5 MG/ML 2 ML AMP ONE (13:22)
[2022-04-25] MEDS ORDERED: IV FLUID CONTINUATION 1,000 ML IV ONE (13:27)
[2022-04-25] MEDS ORDERED: fentaNYL (PF) 50 MCG/ML 2 ML AMP ONE (13:52)
[2022-04-25] MEDS ORDERED: MIDAZOLAM 2 MG/2 ML VIAL IV ONE (14:12)
[2022-04-25] MEDS ORDERED: fentaNYL (PF) 50 MCG/ML 2 ML AMP IV ONE (14:12)
[2022-04-25] MEDS ORDERED: HEPARIN SODIUM 1,000 UN/ML (10ML VL) ONE (14:13)
[2022-04-25] MEDS ORDERED: LIDOCAINE 1% INJ 10MG/ML (30 ML VIAL-PF) SQ ONE (14:14)
[2022-04-25] MEDS ORDERED: HEPARIN SODIUM 1,000 UN/ML (10ML VL) IV ONE (14:22)
[2022-04-25] MEDS ORDERED: IOPAMIDOL-370 125ML BTL INJ ONE (14:29)
[2022-04-25] MEDS: FUROSEMIDE 20 MG TAB PO SCH (17:26)
--- NOTE | 2022-04-25 18:15 | P.PN ---
Subjective Progress Note Date: 04/24/22 This a 77-year-old gentleman admitted with acute CHF exacerbation, preliminary echo reporting severely reduced EF of around 20%, new onset atrial fibrillation last night, hypertension and multiple other medical issues. Anticoagulated on IV heparin drip. Continues on Toprol and lisinopril. Cardiac catheterization schedule for a.m. denies chest pain, palpitations. Reports some shortness of breath, especially with exertion; currently maintaining O2 sats in the 90s on 2 L nasal cannula.. Objective - Vital Signs Vital signs: Vital Signs Temp 98 F 04/23/22 20:00 Pulse 66 04/24/22 13:40 Resp 18 04/24/22 13:40 BP 131/75 04/24/22 12:21 Pulse Ox 94 L 04/24/22 12:21 FiO2 Intake & Output 04/23/22 04/24/22 04/24/22 18:59 06:59 18:59 Intake Total 540 149.553 Balance 540 149.553 Weight 82.6 kg Intake: Intake, IV Titration 31.553 Amount Heparin Sod,Pork in 0.45% 31.553 NaCl 25,000 unit In 0.45 % NaCl 1 250ml.bag @ 12 UNITS/KG/HR 9.912 mls/hr IV .Q24H [facility] Rx#: [id number] Oral 540 118 Other: Voiding Method Toilet Toilet Toilet Diaper Diaper Diaper # Voids 2 1 1 - Exam PHYSICAL EXAMINATION: General: alert and oriented X 3, sitting up in bed, no acute distress HEENT: Normocephalic. Neck is supple. Pupils reactive. Neck: Supple, no JVD. CHEST EXAMINATION: Unlabored, fine bilateral expiratory wheeze. CARDIAC: Normal S1, S2 with no gallops. No murmurs ABDOMEN: Soft. Nontender, nondistended, no guarding. Bowel sounds present. Extremities: no edema. No clubbing or cyanosis. Neurological: Cranial nerves II through XII grossly intact, No focal deficits noted Skin: Warm and dry, No rash. - Labs CBC & Chem 7: 04/25/22 06:40 04/24/22 10:52 Labs: Abnormal Lab Results - Last 24 Hours (Table) 04/24/22 04/24/22 Range/Units 10:52 13:25 PT 12.8 H (9.0-12.0) sec INR 1.2 H (<1.2) APTT 32.1 H 33.7 H (22.0-30.0) sec Assessment and Plan Assessment: Exertional shortness of breath with elevated troponin level. Possible non-ST elevated GA cannot be excluded. Cardiac cath. Pending. Acute CHF, systolic dysfunction with severe LV global hypokinesis, EF 20-25%, preliminary read Acute hypoxic respiratory failure secondary to the above New-onset atrial fibrillation Hypertension BPH Anxiety, stress, history of. Plan: Continue on current medication regime ,monitoring and symptomatic treatment. Final results of echo pending. scheduled for cardiac catheterization in a.m.. Anticoagulated on IV heparin. Toprol initiated. Weaning of O2 in progress. Prognosis guarded, given multiple medical issues.
--- NOTE | 2022-04-25 18:20 | P.PN ---
Subjective Progress Note Date: 04/25/22 This a 77-year-old gentleman admitted with acute CHF exacerbation, preliminary echo reporting severely reduced EF of around 20%, new onset atrial fibrillation last night, hypertension and multiple other medical issues. Anticoagulated on IV heparin drip. Continues on Toprol and lisinopril. Cardiac catheterization schedule for a.m. denies chest pain, palpitations. Reports some shortness of breath, especially with exertion; currently maintaining O2 sats in the 90s on 2 L nasal cannula.. 04/25/2022 NPO, cardiac catheterization pending. Anticoagulated on heparin drip. Denies chest pain, palpitations. Reports shortness of breath improving, currently maintaining O2 sats in the 90s on 2 liters nasal cannula. Objective - Vital Signs Vital signs: Vital Signs Temp 97.9 F 04/25/22 08:00 Pulse 77 04/25/22 17:39 Resp 18 04/25/22 14:00 BP 156/76 04/25/22 17:39 Pulse Ox 96 04/25/22 17:39 FiO2 Intake & Output 04/24/22 04/25/22 04/25/22 18:59 06:59 18:59 Intake Total 267.553 199.706 100 Balance 267.553 199.706 100 Intake: IV 100 Intake, IV Titration 31.553 199.706 Amount Heparin Sod,Pork in 0.45% 31.553 199.706 NaCl 25,000 unit In 0.45 % NaCl 1 250ml.bag @ 12 UNITS/KG/HR 9.912 mls/hr IV .Q24H [facility] Rx#: [id number] Oral 236 Other: Voiding Method Toilet Toilet Toilet Diaper Diaper Diaper # Voids 1 2 1 - Exam PHYSICAL EXAMINATION: General: alert and oriented X 3, sitting up in bed, no acute distress HEENT: Normocephalic. Neck is supple. Pupils reactive. Neck: Supple, no JVD. CHEST EXAMINATION: Unlabored, CTA.. CARDIAC: Normal S1, S2 with no gallops. No murmurs ABDOMEN: Soft. Nontender, nondistended, no guarding. Bowel sounds present. Extremities: no edema. No clubbing or cyanosis. Neurological: Cranial nerves II through XII grossly intact, No focal deficits noted Skin: Warm and dry, No rash. - Labs CBC & Chem 7: 04/25/22 06:40 04/24/22 10:52 Labs: Abnormal Lab Results - Last 24 Hours (Table) 04/24/22 04/25/22 Range/Units 20:00 06:40 APTT 44.4 H 65.4 H (22.0-30.0) sec Assessment and Plan Assessment: Exertional shortness of breath with elevated troponin level. Possible non-ST elevated SC cannot be excluded. Cardiac cath. Pending. Acute CHF, systolic dysfunction with severe LV global hypokinesis, EF 20-25%, preliminary read Acute hypoxic respiratory failure secondary to the above New-onset atrial fibrillation Hypertension BPH Anxiety, stress, history of. Plan: Continue on current medication regime ,monitoring and symptomatic treatment. NPO,cardiac catheterization pending. Anticoagulated on IV heparin. Prognosis guarded, given multiple medical issues. Follow closely with cardiology. The impression and plan of care has been dictated as directed. : I performed a history and examination of this patient, discussed the same with the dictator. I agree with the dictator's note ,documented as a scribe. Any additional findings or plans will be noted.
[2022-04-25] MEDS: ALPRAZolam 0.5 MG TAB PO PRN (21:13)
--- NOTE | 2022-04-25 21:15 | P.CARDCATH ---
Description of Procedure: PROCEDURES PERFORMED: Left heart catheterization, bilateral coronary angiography INDICATION: NSTEMI, Cardiomyopathy CONSENT:I have discussed the risks, benefits and alternative therapies for the above-mentioned procedure and for both sedation/analgesia as well as necessary blood product administration, if indicated, as they pertain to this patient. The patient has indicated understanding and acceptance of the risks and procedures discussed. PROCEDURE: After the risks, benefits and alternatives of the above mentioned procedure explained in detail with the patient, informed consent was obtained. Patient was taken to the catheterization lab and prepped and draped in usual fashion. 1% lidocaine was used to anesthetize the right radial artery. A 6- Jamaican sheath was placed in the right radial artery using modified Seldinger technique. Left coronary angiography was performed with a 5-Jamaican JL 3.5 catheter and right coronary angiography was performed with a 5-Jamaican JR5 catheter in various views. A 5-Jamaican FR5 catheter was inserted into the left ventricle and pressure measurements were obtained. The right radial sheath was removed and a TR band was placed with hemostasis achieved. The patient tolerated the procedure well. Patient was transported back to the post catheterization holding area in stable condition. Conscious Sedation: Patient was monitored under the direct supervision of vision of myself for conscious sedation using Versed and fentanyl for a total duration of 18 minutes HEMODYNAMICS: Ao: 165/83 LV: 137/8, LVEDP 24 SELECTIVE CORONARY ARTERIOGRAPHY: LEFT MAIN: The left main is a large caliber vessel which bifurcates into the LAD and circumflex. There is no significant stenosis. LEFT ANTERIOR DESCENDING CORONARY ARTERY: LAD is a large caliber vessel which wraps around to the apex. There is a proximal LAD 30-40% stenosis and otherwise mild luminal irregularities. LEFT CIRCUMFLEX CORONARY ARTERY: Left circumflex is a moderate caliber vessel with mild luminal irregularities. RIGHT CORONARY ARTERY: The right coronary artery is a large caliber vessel which gives off a PDA and PLV branch and is the dominant vessel. There are mild luminal irregularities. FINAL IMPRESSION: 1. Mild CAD as described above including 30-40% proximal LAD and otherwise mild luminal irregularities 2. Elevated left sided filling pressures PLAN: 1. Aggressive risk factor modification per most recent ACC/AHA guidelines.
[2022-04-26] MEDS: SODIUM CHLORIDE 0.9% 1,000 ML in EMPTY BAG 1 BAG IV SCH (05:46)
[2022-04-26 07:50] LABS: Basophils # (A) 0.1 k/uL (0-0.2); Basophils % (A) 1 %; Eosinophils # (A) 0.2 k/uL (0-0.7); Eosinophils % (A) 3 %; HCT 43.2 % (39.0-53.0); HGB 14.4 gm/dL (13.0-17.5); Lymphocytes # (A) 0.8 k/uL (1.0-4.8); Lymphocytes % (A) 10 %; MCH 31.3 pg (25.0-35.0); MCHC 33.3 g/dL (31.0-37.0); MCV 94.1 fL (80.0-100.0); Mean Platelet Volume 7.2; Monocytes # (A) 0.5 k/uL (0-1.0); Monocytes % (A) 7 %; Neutrophils # (A) 6.3 k/uL (1.3-7.7); Neutrophils % (A) 78 %; Platelet Count 372 k/uL (150-450); RBC 4.59 m/uL (4.30-5.90); RDW 13.3 % (11.5-15.5); WBC 8.1 k/uL (3.8-10.6)
[2022-04-26 07:59] LABS: Calcium 8.4 mg/dL (8.4-10.2); Potassium 4.1 mmol/L (3.5-5.1)
[2022-04-26] MEDS ORDERED: APIXABAN 5 MG TAB PO SCH (09:00)
[2022-04-26] MEDS: lisinopriL 5 MG TAB PO SCH (09:48)
[2022-04-26] MEDS: TAMSULOSIN 0.4 MG CAP.ER.24H PO SCH (09:48)
[2022-04-26] MEDS: METOPROLOL SUCCINATE (ER) 50 MG TAB.ER.24H PO SCH (09:49)
[2022-04-26] MEDS: FUROSEMIDE 20 MG TAB PO SCH (09:49)
--- NOTE | 2022-04-26 10:25 | P.PN ---
Subjective Progress Note Date: 04/26/22 HISTORY OF PRESENT ILLNESS: This is a 77-year-old male with no previous cardiac history. Past medical history of benign prostatic hypertrophy and follows with urologist at [place]. He recently had medication changes finasteride versus Flomax. Patient complains of exertional dyspnea, chest pain and nausea. He states he has tightness in his chest with shortness of breath at the same time. He states his shortness of breath has been going on for the past 1-1/2 weeks along with cough and clear sputum production, nasal drainage. He denies chest pain at rest and denies orthopnea. He recently saw Dr. Gerber and started on Xanax. 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 Patient has a remote history of tobacco use and quit 40 years ago. EKG sinus rhythm with first-degree block and left bundle branch block WBC 12.9, hemoglobin 16.7. D-dimer 0.42. Creatinine 0.9. Troponin 0.042, 0.049, 0.045. ProBNP 1450 Rotavirus PCR not detected. Influenza a not detected. Influenza B not detected. Chest x-ray revealed pleural fluid reactive and atelectasis at lung bases. No definite heart failure 04/24/2022 Patient examined this morning at the bedside. Patient's spouse is present. Patient was found to have atrial fibrillation overnight. The patient denies a history of atrial fib relation. This morning the patient remains in atrial fibrillation ablation with controlled ventricular rates in the 70s. He was started on Toprol. He was also started on Xarelto. Preliminary echocardiogram reveals reduced ejection fraction around 20% 04/26/2022 Patient is status post cardiac catheterization revealing mild coronary artery disease including 30-40% proximal LAD and otherwise mild luminal irregularities. Patient examined this morning at the bedside. Patient denies chest pain or pressure. He denies shortness of breath. Vital signs are stable. Telemetry reveals sinus mechanism. PHYSICAL EXAM: VITAL SIGNS: Reviewed. GENERAL: Well-developed in no acute distress. NECK: Supple. No JVD or thyromegaly LUNGS: Respirations even and unlabored. Lungs essentially clear to auscultation bilaterally. HEART: Regular rate and rhythm. S1 and S2 heard. EXTREMITIES: Normal range of motion. No clubbing or cyanosis. Peripheral pulses intact. No lower extremity edema ASSESSMENT: Acute heart failure with reduced ejection fraction New-onset cardiomyopathy, nonischemic New-onset atrial fibrillation with RVR Abnormal troponins, not suggestive of acute coronary syndrome Hypertension PLAN: Begin Eliquis 5mg BID. Case management consulted for coverage Continue additional cardiac medications Patient may be discharged home today from a cardiac standpoint Follow up outpatient with Dr. Jaime Nurse practitioner note has been reviewed by physician. Signing provider agrees with the documented findings, assessment, and plan of care. Objective - Vital Signs Vital signs: Vital Signs Temp 97.5 F L 04/26/22 08:00 Pulse 69 04/26/22 08:00 Resp 20 04/26/22 08:00 BP 158/79 04/26/22 08:00 Pulse Ox 95 04/26/22 08:00 FiO2 Intake & Output 04/25/22 04/26/22 04/26/22 18:59 06:59 18:59 Intake Total 340 Balance 340 Intake: IV 100 Oral 240 Other: Voiding Method Toilet Toilet Diaper Diaper # Voids 1 1 - Labs CBC & Chem 7: 04/26/22 06:53 04/26/22 06:53 Labs: Abnormal Lab Results - Last 24 Hours (Table) 04/26/22 Range/Units 06:53 Lymphocytes # 0.8 L (1.0-4.8) k/uL
[2022-04-26 12:35] VITALS: BP 152/73; PULSE 66; RESP 16; TEMP 97.8
--- NOTE | 2022-04-26 13:10 | P.DS ---
Providers Date of admission: 04/22/22 22:02 Expected date of discharge: 04/26/22 Attending physician: Christopher Gerber Consults: 04/22/22 22:02 Consult Physician Urgent Consulting Provider: [facility] Reason/Comments: acute exertional dyspnea, nstemi Do you want consulting provider notified?: Yes Primary care physician: Christopher Gerber [facility] Course: Final Diagnoses: Exertional shortness of breath with elevated troponin level. Possible non-ST elevated [place] cannot be excluded. Cardiac cath. Pending. Acute CHF, systolic dysfunction with severe LV global hypokinesis, EF 20-25 %, new-onset nonischemic cardiomyopathy-etiology unclear Acute hypoxic respiratory failure secondary to the above New-onset atrial fibrillation Hypertension BPH Anxiety, stress, history of. Obesity, BMI 26.1 This a 77-year-old gentleman admitted with acute CHF exacerbation, preliminary echo reporting severely reduced EF of around 20%, new onset atrial fibrillation last night, hypertension and multiple other medical issues. Anticoagulated on IV heparin drip. Continues on Toprol and lisinopril. Cardiac catheterization schedule for a.m. denies chest pain, palpitations. Reports some shortness of breath, especially with exertion; currently maintaining O2 sats in the 90s on 2 L nasal cannula. 04/25/2022 NPO, cardiac catheterization pending. Anticoagulated on heparin drip. Denies chest pain, palpitations. Reports shortness of breath improving, currently maintaining O2 sats in the 90s on 2 liters nasal cannula. Status post cardiac catheterization reportedly mild CAD, 30-40% proximal LAD and otherwise mild luminal irregularities with elevated left-sided filling pressures. Aggressive risk factor modification recommended. Anticoagulated on Eliquis. Denies chest pain, palpitations or shortness of breath. Significant clinical improvement. Patient has been cleared for discharge by cardiology with cardiac rehab to be arranged outpatient in clinic. Patient will be discharged home today in a stable condition with guarded prognosis. The impression and plan of care has been dictated as directed. : I performed a history and examination of this patient, discussed the same with the dictator. I agree with the dictator's note ,documented as a scribe. Any additional findings or plans will be noted. Patient Condition at Discharge: Stable Plan - Discharge Summary Discharge Rx Participant: No New Discharge Prescriptions: New Furosemide [Lasix] 20 mg PO DAILY #90 tab Metoprolol Succinate (ER) [Toprol XL] 50 mg PO DAILY #90 tab lisinopriL [Zestril] 5 mg PO DAILY #90 tab Apixaban [Eliquis] 5 mg PO BID #60 tab Continue Tamsulosin HCl [Flomax] 0.4 mg PO DAILY Finasteride [Proscar] 5 mg PO DAILY ALPRAZolam [Xanax] 0.5 mg PO HS PRN PRN Reason: SLEEP Discharge Medication List Finasteride [Proscar] 5 mg PO DAILY 04/07/15 [History] Tamsulosin HCl [Flomax] 0.4 mg PO DAILY 04/07/15 [History] ALPRAZolam [Xanax] 0.5 mg PO HS PRN 04/23/22 [History] Apixaban [Eliquis] 5 mg PO BID #60 tab 04/26/22 [Rx] Furosemide [Lasix] 20 mg PO DAILY #90 tab 04/26/22 [Rx] Metoprolol Succinate (ER) [Toprol XL] 50 mg PO DAILY #90 tab 04/26/22 [Rx] lisinopriL [Zestril] 5 mg PO DAILY #90 tab 04/26/22 [Rx] Follow up Appointment(s)/Referral(s): Jaison Jaime DO [STAFF PHYSICIAN] - 1 Week Christopher Gerber DO [Primary Care Provider] - 3 Days Patient Instructions/Handouts: A-fib (Atrial Fibrillation) (ED)
--- NOTE | 2022-04-28 19:54 | CDI ---
Documentation Clarification Form Date: 04/28/2022 07:25:33 PM From: Pat Nguyen Phone: Admit Date: 04/22/2022 10:02:00 PM Patient Name: Silvano Ty Visit Number: [id number] Discharge Date: 04/26/2022 04:10:00 PM ATTENTION: The Clinical Documentation Specialists (CDI) and [facility] Coding Staff appreciate your assistance in clarifying documentation. Please respond to the clarification below the line at the bottom and electronically sign. The CDI & [facility] Coding staff will review the response and follow-up if needed. Please note: Queries are made part of the Legal Health Record. If you have any questions, please contact the author of this message via ITS. Dr. Christopher Gerber There is documentation of Exertionalshortness of breathwithelevated troponinlevel. Possiblenon-ST elevated MIcannot be excluded. Cardiac cath. Pending is documented in the ED Note; however, the LHC was performed prior to Discharge. Additional clarification regarding the LHC findings is requested. History/Risk Factors: 77yo M, HTN, ASHF, NICM, AVB, BPH, Hx smoker, Obesity,BMI 26.1 Clinical Indicators: Troponin: 0.042, 0.049, 0.045 EKG Results: first-degree AVB and LBBB. Old EKG not available for comparison. LHC- MildCADas described above including 30-40% proximal LAD and otherwise mild luminal irregularities 2.Elevatedleft sided fillingpressures Echo: 1.Severe global hypokinesis of the left ventricle. 2. MildMR, AR and TR Treatment: LHC reportedly mildCAD, 30-40% proximal LAD and otherwise mild luminal irregularities withelevatedleft-sided filling pressures. Aggressive risk factor modification recommended. Anticoagulated on Eliquis. Denieschest pain,palpitationsorshortness of breath. Significant clinical improvement. Pt. has been cleared for discharge by cardiology with cardiac rehab to be arranged outpatient in clinic. Pt. will be DC home today in a stable condition with guarded prognosis. Please clarify which diagnosis best matches the reason for this visit: [ ] Non-ischemic myocardial injury (nontraumatic) [ X ] Due to Acute heart failure [ ] Other Cause [ ] Cause unknown [ ] NSTEMI (type 1) [ ] Unable to determine [ ] Other Condition, please specify (Template Last Revised: August 2020) MTDD
== END 2022-04-26 16:10 | disposition home or self-care (01) | DRG 286 ==
LOC: EC 18:00 → 3SCARD 22:02
PROVIDERS: ADMIT Family Medicine; ATTEND Family Medicine
PROC: 4A023N7 Measurement of Cardiac Sampling and Pressure, Left Heart, Percutaneous Approach (ICD-10-PCS; principal; 2022-04-25 07:30)
PROC: B2111ZZ Fluoroscopy of Multiple Coronary Arteries using Low Osmolar Contrast (ICD-10-PCS; principal; 2022-04-25 07:30)
DX: I11.0 Hypertensive heart disease with heart failure (principal); I50.43 Acute on chronic combined systolic (congestive) and diastolic (congestive) heart failure; J96.01 Acute respiratory failure with hypoxia; I5A Non-ischemic myocardial injury (non-traumatic); I42.8 Other cardiomyopathies; E66.9 Obesity, unspecified; I44.7 Left bundle-branch block, unspecified; F41.9 Anxiety disorder, unspecified; I25.10 Atherosclerotic heart disease of native coronary artery without angina pectoris; I44.0 Atrioventricular block, first degree; I48.91 Unspecified atrial fibrillation; N40.0 Benign prostatic hyperplasia without lower urinary tract symptoms; Z79.899 Other long term (current) drug therapy; Z87.891 Personal history of nicotine dependence; Z68.26 Body mass index [BMI] 26.0-26.9, adult
CPT/HCPCS: 36415; 71046; 80048; 80053; 80061; 83605; 83735; 83880; 84443; 84484; 85025; 85379; 85610; 85730; 87502; 87635; 93005; 93306; 93458; 94760; 96374; 99285

== ENCOUNTER 2022-04-26 21:54 | Inpatient (IN) | payer MEDICARE ==
[2022-04-26] MEDS ORDERED: SODIUM CHLORIDE 0.9% 1,000 ML IV STA (22:02)
[2022-04-26] MEDS ORDERED: IPRATROPIUM-ALBUTEROL 3 ML NEB INHALATION STA (22:02)
[2022-04-26] MEDS ORDERED: MORPHINE SULFATE 2 MG/ML SYRINGE IVP PRN (22:03)
[2022-04-26] MEDS ORDERED: MORPHINE SULFATE 2 MG/ML SYRINGE IVP STA (22:03)
--- NOTE | 2022-04-26 22:04 | ED ---
SOB HPI - General Stated Complaint: SOB Time Seen by Provider: 04/26/22 22:02 Source: RN notes reviewed, old records reviewed, Caregiver Mode of arrival: EMS Limitations: physical limitation - History of Present Illness Initial Comments: This is a 37-year-old presents today for evaluation of shortness of breath difficulty catching breath. Patient is brought to the ER by EMS for evaluation. Patient is severely short of breath anxious, unable to provide history MD Complaint: shortness of breath, anxiety -: minutes(s) Radiation: back Severity: moderate Severity scale (1-10): 4 Quality: aching Consistency: constant Improves With: nothing Worsens With: nothing Known History Of: congestive heart failure Context: recent URI Treatments Prior to Arrival: none - Related Data Home Oxygen Therapy: No Home Medications Medication Instructions Recorded Confirmed Finasteride [Proscar] 5 mg PO DAILY 04/07/15 04/23/22 Tamsulosin HCl [Flomax] 0.4 mg PO DAILY 04/07/15 04/23/22 ALPRAZolam [Xanax] 0.5 mg PO HS PRN 04/23/22 04/23/22 Previous Rx's Medication Instructions Recorded Apixaban [Eliquis] 5 mg PO BID #60 tab 04/26/22 Furosemide [Lasix] 20 mg PO DAILY #90 tab 04/26/22 Metoprolol Succinate (ER) [Toprol 50 mg PO DAILY #90 tab 04/26/22 XL] lisinopriL [Zestril] 5 mg PO DAILY #90 tab 04/26/22 Allergies Allergy/AdvReac Type Severity Reaction Status Date / Time Penicillins Allergy Unknown Verified 04/23/22 12:31 Childhood Review of Systems ROS Statement: Those systems with pertinent positive or pertinent negative responses have been documented in the HPI. ROS Other: All systems not noted in ROS Statement are negative. Past Medical History Past Medical History: No Reported History Additional Past Medical History / Comment(s): enlarged prostate History of Any Multi-Drug Resistant Organisms: None Reported Past Surgical History: Hernia Repair Past Psychological History: No Psychological Hx Reported Smoking Status: Former smoker Past Alcohol Use History: Occasional Past Drug Use History: None Reported - Past Family History Father History Unknown: Yes Mother History Unknown: Yes General Exam General appearance: alert, anxious, in distress Head exam: Present: atraumatic, normocephalic, normal inspection Eye exam: Present: normal appearance, PERRL, EOMI. Absent: scleral icterus, conjunctival injection, periorbital swelling ENT exam: Present: normal exam, mucous membranes moist Neck exam: Present: normal inspection. Absent: tenderness, meningismus, lymphadenopathy Respiratory exam: Present: respiratory distress, rales, accessory muscle use, decreased breath sounds, prolonged expiratory. Absent: wheezes, rhonchi, stridor Cardiovascular Exam: Present: regular rate, normal rhythm, normal heart sounds. Absent: systolic murmur, diastolic murmur, rubs, gallop, clicks GI/Abdominal exam: Present: soft, normal bowel sounds. Absent: distended, tenderness, guarding, rebound, rigid Extremities exam: Present: normal inspection, full ROM, normal capillary refill. Absent: tenderness, pedal edema, joint swelling, calf tenderness Back exam: Present: normal inspection Neurological exam: Present: alert, oriented X3, CN II-XII intact Psychiatric exam: Present: normal affect, normal mood Skin exam: Present: warm, dry, intact, normal color. Absent: rash Course Vital Signs 04/26/22 04/26/22 04/26/22 22:00 22:03 22:11 Pulse Rate 102 H 76 Respiratory 46 H 24 Rate Blood Pressure 213/200 O2 Sat by Pulse 80 L 100 Oximetry Fraction of 50 Inspired Oxygen (FIO2) 04/26/22 04/26/22 04/26/22 22:17 22:18 22:20 Pulse Rate 77 73 71 Respiratory 15 Rate Blood Pressure 174/77 O2 Sat by Pulse 98 Oximetry Fraction of Inspired Oxygen (FIO2) - Reevaluation(s) Reevaluation #1: 04/26/22 23:01 Medical record is reviewed Reevaluation #2: 04/26/22 23:01 Patient improving on BiPAP - Consultations Consultation #1: Spoke with Dr. Gerber regarding admission is agreeable Medical Decision Making - Medical Decision Making 77-year-old presenting for shortness of breath severe a some BiPAP on arrival in the emergency room, patient is pulmonary edema hypoxic respiratory failure secondary to CHF. - Lab Data Result diagrams: 04/26/22 21:50 04/26/22 21:50 Lab Results 04/26/22 04/26/22 04/26/22 Range/Units 21:50 21:50 21:50 WBC 14.6 H (3.8-10.6) k/uL RBC 5.35 (4.30-5.90) m/uL Hgb 16.5 (13.0-17.5) gm/dL Hct 50.0 (39.0-53.0) % MCV 93.5 (80.0-100.0) fL MCH 30.8 (25.0-35.0) pg MCHC 33.0 (31.0-37.0) g/dL RDW 13.2 (11.5-15.5) % Plt Count 452 H (150-450) k/uL MPV 7.6 Neutrophils % 80 % Lymphocytes % 12 % Monocytes % 5 % Eosinophils % 1 % Basophils % 1 % Neutrophils # 11.6 H (1.3-7.7) k/uL Lymphocytes # 1.7 (1.0-4.8) k/uL Monocytes # 0.8 (0-1.0) k/uL Eosinophils # 0.2 (0-0.7) k/uL Basophils # 0.1 (0-0.2) k/uL Sodium 136 L (137-145) mmol/L Potassium 5.0 (3.5-5.1) mmol/L Chloride 104 (98-107) mmol/L Carbon Dioxide 21 L (22-30) mmol/L Anion Gap 11 mmol/L BUN 18 (9-20) mg/dL Creatinine 0.98 (0.66-1.25) mg/dL Est GFR (CKD-EPI)AfAm 85 (>60 ml/min/1.73 sqM) Est GFR (CKD-EPI)NonAf 74 (>60 ml/min/1.73 sqM) Glucose 120 H (74-99) mg/dL Calcium 8.8 (8.4-10.2) mg/dL Magnesium 2.1 (1.6-2.3) mg/dL Total Bilirubin 1.1 (0.2-1.3) mg/dL AST 56 (17-59) U/L ALT 32 (4-49) U/L Alkaline Phosphatase 91 (38-126) U/L NT-Pro-B Natriuret Pep 1350 pg/mL Total Protein 7.5 (6.3-8.2) g/dL Albumin 4.2 (3.5-5.0) g/dL - Radiology Data Radiology results: report reviewed (Chest x-rays positive for pulmonary edema), image reviewed Critical Care Time Critical Care Time: Yes Total Critical Care Time: 31 Disposition Clinical Impression: Community acquired pneumonia, Acute pulmonary edema, Congestive heart failure, Hypoxia, Acute respiratory failure Disposition: ADMITTED IP TO THIS HOSP Condition: Fair Is patient prescribed a controlled substance at d/c from ED?: No Referrals: Christopher Gerber DO [Primary Care Provider] - 1-2 days Time of Disposition: 23:05
[2022-04-26 22:24] LABS: Basophils # (A) 0.1 k/uL (0-0.2); Basophils % (A) 1 %; Eosinophils # (A) 0.2 k/uL (0-0.7); Eosinophils % (A) 1 %; HGB 16.5 gm/dL (13.0-17.5); Lymphocytes # (A) 1.7 k/uL (1.0-4.8); Lymphocytes % (A) 12 %; MCH 30.8 pg (25.0-35.0); MCV 93.5 fL (80.0-100.0); Mean Platelet Volume 7.6; Monocytes # (A) 0.8 k/uL (0-1.0); Monocytes % (A) 5 %; Neutrophils # (A) 11.6 k/uL (1.3-7.7); Neutrophils % (A) 80 %; Platelet Count 452 k/uL (150-450); RBC 5.35 m/uL (4.30-5.90); RDW 13.2 % (11.5-15.5); WBC 14.6 k/uL (3.8-10.6)
[2022-04-26 22:34] LABS: Albumin 4.2 g/dL (3.5-5.0); Calcium 8.8 mg/dL (8.4-10.2); Magnesium 2.1 mg/dL (1.6-2.3); Total Bilirubin 1.1 mg/dL (0.2-1.3); Total Protein 7.5 g/dL (6.3-8.2)
--- NOTE | 2022-04-26 22:43 | XR ---
EXAMINATION TYPE: XR chest 1V portable DATE OF EXAM: 04/26/2022 COMPARISON: 04/22/2022 HISTORY: Short of breath TECHNIQUE: FINDINGS: There is pulmonary interstitial and airspace edema. There is blunting of the costophrenic a ngles. There are chest leads. Bony thorax is intact. IMPRESSION: Pulmonary edema and pleural fluid is slightly worse than last exam and consistent with wo rsening heart failure.
[2022-04-26] MEDS ORDERED: NALOXONE 0.4 MG/ML 1 ML VIAL IV PRN (22:56)
[2022-04-26] MEDS ORDERED: MORPHINE SULFATE 4 MG/ML SYRINGE IV PRN (22:56)
[2022-04-26] MEDS ORDERED: FUROSEMIDE 10 MG/ML 4 ML VIAL IV STA (22:56)
[2022-04-26] MEDS ORDERED: ONDANSETRON 4 MG/2 ML VIAL IVP PRN (22:56)
[2022-04-26 23:36] LABS: INR 1.1 (<1.2); Partial Thromboplastin Time 25.2 sec (22.0-30.0); Prothrombin Time 11.5 sec (9.0-12.0)
[2022-04-27] MEDS: SODIUM CHLORIDE 0.9% 1,000 ML IV SCH ×2 (01:32→23:07)
[2022-04-27 04:48] LABS: Basophils # (A) 0.1 k/uL (0-0.2); Basophils % (A) 0 %; Eosinophils % (A) 0 %; HCT 42.1 % (39.0-53.0); HGB 14.3 gm/dL (13.0-17.5); Lymphocytes # (A) 0.6 k/uL (1.0-4.8); Lymphocytes % (A) 5 %; MCH 31.4 pg (25.0-35.0); MCHC 33.9 g/dL (31.0-37.0); MCV 92.6 fL (80.0-100.0); Mean Platelet Volume 7.2; Monocytes # (A) 0.6 k/uL (0-1.0); Monocytes % (A) 5 %; Neutrophils # (A) 11.5 k/uL (1.3-7.7); Neutrophils % (A) 89 %; Platelet Count 382 k/uL (150-450); RBC 4.55 m/uL (4.30-5.90); RDW 13.2 % (11.5-15.5); WBC 12.9 k/uL (3.8-10.6)
[2022-04-27 05:02] LABS: Albumin 3.3 g/dL (3.5-5.0); Calcium 8.5 mg/dL (8.4-10.2); Magnesium 2.1 mg/dL (1.6-2.3); Phosphorus 3.6 mg/dL (2.5-4.5); Potassium 4.2 mmol/L (3.5-5.1); Total Bilirubin 0.8 mg/dL (0.2-1.3); Total Protein 5.9 g/dL (6.3-8.2)
[2022-04-27] MEDS ORDERED: METOPROLOL SUCCINATE (ER) 25 MG TAB.ER.24H PO SCH (09:00)
[2022-04-27] MEDS ORDERED: FUROSEMIDE 10 MG/ML 4 ML VIAL IV SCH (09:00)
[2022-04-27] MEDS ORDERED: lisinopriL 5 MG TAB PO SCH (09:00)
[2022-04-27] MEDS ORDERED: METOPROLOL SUCCINATE (ER) 50 MG TAB.ER.24H PO SCH (09:00)
[2022-04-27] MEDS: lisinopriL 10 MG TAB PO SCH ×2 (09:28→20:58)
[2022-04-27] MEDS: LORazepam 0.5 MG TAB PO PRN ×2 (09:28→15:47)
[2022-04-27] MEDS: IPRATROPIUM-ALBUTEROL 3 ML NEB INHALATION PRN ×3 (09:28→16:46)
[2022-04-27] MEDS: APIXABAN 5 MG TAB PO SCH ×2 (09:28→20:58)
[2022-04-27] MEDS: FUROSEMIDE 10 MG/ML 4 ML VIAL IV SCH ×3 (10:08→23:56)
--- NOTE | 2022-04-27 10:52 | P.CRDCN ---
History of Present Illness Consult date: 04/27/22 History of present illness: HISTORY OF PRESENT ILLNESS: This is a 77 year old male with a past medical history significant for nonischemic cardiomyopathy, mild nonobstructive CAD, paroxysmal atrial fibrillation, congestive heart failure, and hypertension. Patient has not established with a decal decorator yet but was evaluated by Dr. Jaime during recent admission. He was discharged home yesterday. We have been asked to see the patient in consultation for CHF. Patient examined at the bedside. Patient was discharged home yesterday. He states he was feeling fine when he left but later in the evening he became very SOB. He also has significant anxiety. Patient was found to be in CHF and was started on IV lasix. He denies chest pain or pressure. * EKG reveals sinus mechanism with no signs of acute ischemia * Chest xray pulmonary edema and pleural fluid which is slightly worse than last examined consistent with worsening heart failure * Laboratory data: WBC 12.9. Hemoglobin 14.3. Platelet count 382. Sodium 134. Potassium 4.2. BUN 19. Creatinine 1.14. Troponin 0.070. 0.155. 0.215. ProBNP 1350. * Current home cardiac medications include Eliquis 5mg BID, lisinopril 5 mg daily, metoprolol succinate 50 mg daily, Lasix 20 mg daily * Most recent echocardiogram obtained on 04/24/2022 revealed ejection fraction 20-25% * Cardiac catheterization history: April 2022 revealing mild coronary artery disease including 30-40% proximal LAD and otherwise mild luminal irregularities. REVIEW OF SYSTEMS: At the time of my exam: CONSTITUTIONAL: Denies fever or chills. HEENT: Denies blurred vision, vision changes, or eye pain. Denies hemoptysis CARDIOVASCULAR: Denies chest pain. Denies orthopnea. Denies PND. Denies palpitations RESPIRATORY: Denies shortness of breath. GASTROINTESTINAL: Denies abdominal pain. Denies nausea or vomiting. HEMATOLOGIC: Denies bleeding disorders. GENITOURINARY: Denies any blood in urine. SKIN: Denies pruitis. Denies rash. PHYSICAL EXAM: VITAL SIGNS: Reviewed. GENERAL: Well-developed in no acute distress. HEENT: Head is normocephalic. Pupils are equal, round. Sclerae anicteric. Mucous membranes of the mouth are moist. Neck supple. No JVD or thyromegaly LUNGS: Respirations even and unlabored. Lungs diminished with bibasilar crackles HEART: Regular rate and rhythm. S1 and S2 heard. ABDOMEN: Soft. Nondistended. Nontender. EXTREMITIES: Normal range of motion. No clubbing or cyanosis. Peripheral pulses intact. Trace lower extremity edema NEUROLOGIC: Awake and alert. Oriented x 3. ASSESSMENT: Shortness of breath Acute hypoxic respiratory failure Acute on chronic heart failure with reduced ejection fraction, EF 20-25% Paroxysmal atrial fibrillation Nonischemic cardiomyopathy Mild nonobstructive coronary artery disease Hypertension PLAN: No need to repeat echo Continue IV lasix. Increase dosage to Q8 hours Change metoprolol to 25 mg 3 times a day Change lisinopril to 10 mg twice a day Add Aldactone 25 mg daily Daily weights, accurate I&O, and monitoring of kidney function Further recommendations pending patient's course Nurse practitioner note has been reviewed by physician. Signing provider agrees with the documented findings, assessment, and plan of care. Past Medical History Past Medical History: Heart Failure, Prostate Disorder Additional Past Medical History / Comment(s): enlarged prostate, recent CHF diagnosis History of Any Multi-Drug Resistant Organisms: None Reported Past Surgical History: Hernia Repair Past Anesthesia/Blood Transfusion Reactions: No Reported Reaction Past Psychological History: Anxiety Smoking Status: Never smoker Past Alcohol Use History: Occasional Past Drug Use History: None Reported - Past Family History Father History Unknown: Yes Mother History Unknown: Yes Medications and Allergies Home Medications Medication Instructions Recorded Confirmed Type Finasteride [Proscar] 5 mg PO DAILY 04/07/15 04/27/22 History Tamsulosin HCl [Flomax] 0.4 mg PO DAILY 04/07/15 04/27/22 History ALPRAZolam [Xanax] 0.5 mg PO HS PRN 04/23/22 04/27/22 History Apixaban [Eliquis] 5 mg PO BID #60 tab 04/26/22 04/27/22 Rx Furosemide [Lasix] 20 mg PO DAILY #90 tab 04/26/22 04/27/22 Rx Metoprolol Succinate (ER) [Toprol 50 mg PO DAILY #90 tab 04/26/22 04/27/22 Rx XL] lisinopriL [Zestril] 5 mg PO DAILY #90 tab 04/26/22 04/27/22 Rx Allergies Allergy/AdvReac Type Severity Reaction Status Date / Time Penicillins Allergy Unknown Verified 04/27/22 09:37 Childhood Physical Exam Vitals: Vital Signs Temp Pulse Pulse Resp BP BP BP 04/27/22 09:29 72 04/27/22 04:00 97.6 F 70 20 161/80 04/27/22 01:24 97.6 F 72 22 166/76 04/26/22 23:55 70 16 122/56 04/26/22 23:15 16 131/56 04/26/22 22:20 71 15 174/77 04/26/22 22:18 73 04/26/22 22:17 77 04/26/22 22:11 76 04/26/22 22:03 102 H 24 213/200 04/26/22 22:00 46 H Pulse Ox FiO2 04/27/22 09:29 04/27/22 04:00 96 04/27/22 01:24 94 L 04/26/22 23:55 93 L 04/26/22 23:15 96 50 04/26/22 22:20 98 04/26/22 22:18 04/26/22 22:17 04/26/22 22:11 50 04/26/22 22:03 100 04/26/22 22:00 80 L Intake and Output 04/26/22 04/27/22 04/27/22 22:59 06:59 14:59 Intake Total 10 Output Total 100 Balance 10 -100 Intake: IV 10 Invasive Line 1 10 Output: Urine 100 Other: Voiding Method Toilet Urinal # Voids 1 Weight 77.111 kg 85 kg Results 04/27/22 04:25 04/27/22 04:25 Cardiac Enzymes 04/26/22 04/26/22 04/27/22 Range/Units 21:50 21:50 00:30 AST 56 (17-59) U/L Troponin I 0.070 H* 0.155 H* (0.000-0.034) ng/mL 04/27/22 04/27/22 Range/Units 04:25 04:25 AST 27 (17-59) U/L Troponin I 0.215 H* (0.000-0.034) ng/mL Coagulation 04/26/22 Range/Units 21:50 PT 11.5 (9.0-12.0) sec APTT 25.2 (22.0-30.0) sec CBC 04/26/22 04/27/22 Range/Units 21:50 04:25 WBC 14.6 H 12.9 H (3.8-10.6) k/uL RBC 5.35 4.55 (4.30-5.90) m/uL Hgb 16.5 14.3 (13.0-17.5) gm/dL Hct 50.0 42.1 (39.0-53.0) % Plt Count 452 H 382 (150-450) k/uL Comprehensive Metabolic Panel 04/26/22 04/27/22 Range/Units 21:50 04:25 Sodium 136 L 134 L (137-145) mmol/L Potassium 5.0 4.2 (3.5-5.1) mmol/L Chloride 104 103 (98-107) mmol/L Carbon Dioxide 21 L 27 (22-30) mmol/L BUN 18 19 (9-20) mg/dL Creatinine 0.98 1.14 (0.66-1.25) mg/dL Glucose 120 H 109 H (74-99) mg/dL Calcium 8.8 8.5 (8.4-10.2) mg/dL AST 56 27 (17-59) U/L ALT 32 28 (4-49) U/L Alkaline Phosphatase 91 74 (38-126) U/L Total Protein 7.5 5.9 L (6.3-8.2) g/dL Albumin 4.2 3.3 L (3.5-5.0) g/dL Current Medications Generic Name Dose Route Start Last Admin Trade Name Freq PRN Reason Stop Dose Admin Albuterol/Ipratropium 3 ml 04/26/22 22:56 04/27/22 09:28 Ipratropium-Albuterol 3 Ml Neb INHALATION 3 ml RT-QID PRN Administration Shortness Of Breath Or Wheezing Alprazolam 0.5 mg 04/27/22 10:00 Alprazolam 0.5 Mg Tab PO Q8H PRN Anxiety Apixaban 5 mg 04/27/22 09:00 04/27/22 09:28 Apixaban 5 Mg Tab PO 5 mg BID OLENA Administration Protocol Furosemide 40 mg 04/27/22 09:30 04/27/22 10:08 Furosemide 10 Mg/Ml 4 Ml Vial IV Not Given Q8HR OLENA Sodium Chloride 1,000 mls @ 20 mls/hr 04/26/22 22:02 04/26/22 22:11 Saline 0.9% IV 04/27/22 22:01 20 mls/hr .Q24H STA Administration Sodium Chloride 1,000 mls @ 20 mls/hr 04/26/22 23:00 04/27/22 01:32 Saline 0.9% IV Not Given .Q24H OLENA Lisinopril 10 mg 04/27/22 09:00 04/27/22 09:28 Lisinopril 10 Mg Tab PO 10 mg BID OLENA Administration Lorazepam 0.5 mg 04/26/22 22:56 04/27/22 09:28 Lorazepam 0.5 Mg Tab PO 0.5 mg Q6HR PRN Administration Anxiety Metoprolol Succinate 25 mg 04/27/22 16:00 Metoprolol Succinate (Er) 25 Mg Tab.Er.24h PO TID OLENA Morphine Sulfate 2 mg 04/26/22 22:03 Morphine Sulfate 2 Mg/Ml Syringe IVP Q4HR PRN Pain/Discomfort Morphine Sulfate 4 mg 04/26/22 22:56 Morphine Sulfate 4 Mg/Ml Syringe IV Q4HR PRN Severe Pain (Scale 7 to 10) Naloxone HCl 0.2 mg 04/26/22 22:56 Naloxone 0.4 Mg/Ml 1 Ml Vial IV Q2M PRN Opioid Reversal Ondansetron HCl 4 mg 04/26/22 22:56 Ondansetron 4 Mg/2 Ml Vial IVP Q8HR PRN Nausea And Vomiting Spironolactone 25 mg 04/27/22 09:45 Spironolactone 25 Mg Tab PO DAILY OLENA Intake and Output 04/26/22 04/27/22 04/27/22 22:59 06:59 14:59 Intake Total 10 Output Total 100 Balance 10 -100 Intake: IV 10 Invasive Line 1 10 Output: Urine 100 Other: Voiding Method Toilet Urinal # Voids 1 Weight 77.111 kg 85 kg 04/27/22 04:25 04/27/22 04:25
[2022-04-27] MEDS: SPIRONOLACTONE 25 MG TAB PO SCH (11:51)
[2022-04-27] MEDS ORDERED: TAMSULOSIN 0.4 MG CAP.ER.24H PO SCH (14:00)
[2022-04-27] MEDS: METOPROLOL SUCCINATE (ER) 25 MG TAB.ER.24H PO SCH ×2 (15:46→20:58)
[2022-04-27] MEDS: FINASTERIDE 5 MG TAB PO SCH (15:47)
--- NOTE | 2022-04-27 15:47 | P.HPIM ---
History of Present Illness H&P Date: 04/27/22 Chief Complaint: Worsening shortness of breath This a 77-year-old gentleman discharged yesterday with acute CHF exacerbation, severely reduced EF of around 20-25%, new-onset nonischemic cardiomyopathy- etiology unclear, new onset atrial fibrillation, hypertension and multiple other medical issues, returned within a few hours of discharge. Reports after going up the stairs to his apartment, developed worsening shortness of breath, significant anxiety and return to the ER. Denies chest pain, palpitations. Chest x-ray reporting pulmonary edema slightly worsened from prior exam, consistent with worsening heart failure. ProBNP 1350, troponin 0.070, 0.155, 0.215. BUN 19, creatinine 1.14. IVpush diuretics initiated. WBC 12.9, hemoglobin 14.3, platelets 382. Sodium 134, potassium 4.2 magnesium 2.1. Prior cardiac catheterization reported mild CAD, 30-40% proximal LAD and otherwise mild luminal irregularities with elevated left-sided filling pressures. Review of Systems ROS Statement: Those systems with pertinent positive or pertinent negative responses have been documented in the HPI. ROS Other: All systems not noted in ROS Statement are negative. Past Medical History Past Medical History: Heart Failure, Prostate Disorder Additional Past Medical History / Comment(s): enlarged prostate, recent CHF diagnosis History of Any Multi-Drug Resistant Organisms: None Reported Past Surgical History: Hernia Repair Past Anesthesia/Blood Transfusion Reactions: No Reported Reaction Past Psychological History: Anxiety Smoking Status: Never smoker Past Alcohol Use History: Occasional Past Drug Use History: None Reported - Past Family History Father History Unknown: Yes Mother History Unknown: Yes Medications and Allergies Home Medications Medication Instructions Recorded Confirmed Type Finasteride [Proscar] 5 mg PO DAILY 04/07/15 04/27/22 History Tamsulosin HCl [Flomax] 0.4 mg PO DAILY 04/07/15 04/27/22 History ALPRAZolam [Xanax] 0.5 mg PO HS PRN 04/23/22 04/27/22 History Apixaban [Eliquis] 5 mg PO BID #60 tab 04/26/22 04/27/22 Rx Furosemide [Lasix] 20 mg PO DAILY #90 tab 04/26/22 04/27/22 Rx Metoprolol Succinate (ER) [Toprol 50 mg PO DAILY #90 tab 04/26/22 04/27/22 Rx XL] lisinopriL [Zestril] 5 mg PO DAILY #90 tab 04/26/22 04/27/22 Rx Allergies Allergy/AdvReac Type Severity Reaction Status Date / Time Penicillins Allergy Unknown Verified 04/27/22 09:37 Childhood Physical Exam Vitals: Vital Signs Temp Pulse Pulse Resp BP BP BP 04/27/22 09:29 72 04/27/22 04:00 97.6 F 70 20 161/80 04/27/22 01:24 97.6 F 72 22 166/76 04/26/22 23:55 70 16 122/56 04/26/22 23:15 16 131/56 04/26/22 22:20 71 15 174/77 04/26/22 22:18 73 04/26/22 22:17 77 04/26/22 22:11 76 04/26/22 22:03 102 H 24 213/200 04/26/22 22:00 46 H Pulse Ox FiO2 04/27/22 09:29 04/27/22 04:00 96 04/27/22 01:24 94 L 04/26/22 23:55 93 L 04/26/22 23:15 96 50 04/26/22 22:20 98 04/26/22 22:18 04/26/22 22:17 04/26/22 22:11 50 04/26/22 22:03 100 04/26/22 22:00 80 L Intake and Output 04/26/22 04/27/22 04/27/22 22:59 06:59 14:59 Intake Total 10 Output Total 100 Balance 10 -100 Intake: IV 10 Invasive Line 1 10 Output: Urine 100 Other: Voiding Method Toilet Urinal # Voids 1 Weight 77.111 kg 85 kg - Exam PHYSICAL EXAMINATION: General: alert and oriented X 3, sitting up in bed, no acute distress HEENT: Normocephalic. Neck is supple. Pupils reactive. Neck: Supple, no JVD. CHEST EXAMINATION: Unlabored, fine bibasilar crackles. CARDIAC: Normal S1, S2 with no gallops. No murmurs ABDOMEN: Soft. Nontender, nondistended, no guarding. Bowel sounds present. Extremities: Trace edema. No clubbing or cyanosis. Neurological: Cranial nerves II through XII grossly intact, No focal deficits noted Skin: Warm and dry, No rash. Results CBC & Chem 7: 04/27/22 04:25 04/27/22 04:25 Labs: Abnormal Lab Results - Last 24 Hours (Table) 04/26/22 04/26/22 04/26/22 Range/Units 21:50 21:50 21:50 WBC 14.6 H (3.8-10.6) k/uL Plt Count 452 H (150-450) k/uL Neutrophils # 11.6 H (1.3-7.7) k/uL Lymphocytes # (1.0-4.8) k/uL Sodium 136 L (137-145) mmol/L Carbon Dioxide 21 L (22-30) mmol/L Glucose 120 H (74-99) mg/dL Troponin I 0.070 H* (0.000-0.034) ng/mL Total Protein (6.3-8.2) g/dL Albumin (3.5-5.0) g/dL 04/27/22 04/27/22 04/27/22 Range/Units 00:30 04:25 04:25 WBC 12.9 H (3.8-10.6) k/uL Plt Count (150-450) k/uL Neutrophils # 11.5 H (1.3-7.7) k/uL Lymphocytes # 0.6 L (1.0-4.8) k/uL Sodium (137-145) mmol/L Carbon Dioxide (22-30) mmol/L Glucose (74-99) mg/dL Troponin I 0.155 H* 0.215 H* (0.000-0.034) ng/mL Total Protein (6.3-8.2) g/dL Albumin (3.5-5.0) g/dL 04/27/22 Range/Units 04:25 WBC (3.8-10.6) k/uL Plt Count (150-450) k/uL Neutrophils # (1.3-7.7) k/uL Lymphocytes # (1.0-4.8) k/uL Sodium 134 L (137-145) mmol/L Carbon Dioxide (22-30) mmol/L Glucose 109 H (74-99) mg/dL Troponin I (0.000-0.034) ng/mL Total Protein 5.9 L (6.3-8.2) g/dL Albumin 3.3 L (3.5-5.0) g/dL Thrombosis Risk Factor Assmnt - Choose All That Apply Any of the Below Risk Factors Present?: Yes Each Factor Represents 1 point: Heart failure (<1month) Other Risk Factors: Yes Each Risk Factor Represents 3 Points: Age 75 years or older Other congenital or acquired thrombophilia - If yes, enter type in comment: No Thrombosis Risk Factor Assessment Total Risk Factor Score: 4 Thrombosis Risk Factor Assessment Level: Moderate Risk Assessment and Plan Assessment: Exertional shortness of breath with elevated troponin level. Acute CHF, systolic dysfunction with severe LV global hypokinesis, EF 20-25 %, new-onset nonischemic cardiomyopathy-etiology unclear Acute hypoxic respiratory failure secondary to the above New-onset paroxysmal atrial fibrillation Hypertension BPH Anxiety, stress, panic attacks history of. Obesity, BMI 27.7 Plan: Continue on current medication regime ,monitoring and symptomatic treatment. IV push diuretics as per cardiology. CHF protocol with strict I&O's. Xanax prn anxiety. Plan a care discussed with both patient and at the bedside this morning. Both verbalize understanding of plan and in agreement with. The impression and plan of care has been dictated as directed. : I performed a history and examination of this patient, discussed the same with the dictator. I agree with the dictator's note ,documented as a scribe. Any additional findings or plans will be noted.
[2022-04-27] MEDS: PANTOPRAZOLE 40 MG/10 ML VIAL IVP SCH (15:51)
[2022-04-27] MEDS: ALPRAZolam 0.5 MG TAB PO PRN (22:29)
[2022-04-28] MEDS: PANTOPRAZOLE 40 MG/10 ML VIAL IVP SCH (08:53)
[2022-04-28] MEDS: APIXABAN 5 MG TAB PO SCH ×2 (08:54→20:55)
[2022-04-28] MEDS: TAMSULOSIN 0.4 MG CAP.ER.24H PO SCH (08:54)
[2022-04-28] MEDS: ALPRAZolam 0.5 MG TAB PO PRN ×3 (08:54→23:37)
[2022-04-28] MEDS: FUROSEMIDE 10 MG/ML 4 ML VIAL IV SCH (08:54)
[2022-04-28] MEDS: lisinopriL 10 MG TAB PO SCH ×2 (08:55→20:55)
[2022-04-28] MEDS: FINASTERIDE 5 MG TAB PO SCH (08:55)
[2022-04-28] MEDS: SPIRONOLACTONE 25 MG TAB PO SCH (08:55)
[2022-04-28] MEDS: METOPROLOL SUCCINATE (ER) 25 MG TAB.ER.24H PO SCH ×3 (08:55→20:55)
[2022-04-28 08:57] LABS: Calcium 8.6 mg/dL (8.4-10.2); Potassium 3.8 mmol/L (3.5-5.1)
--- NOTE | 2022-04-28 11:26 | P.PN ---
Subjective Progress Note Date: 04/28/22 HISTORY OF PRESENT ILLNESS: This is a 77 year old male with a past medical history significant for nonischemic cardiomyopathy, mild nonobstructive CAD, paroxysmal atrial fibrillation, congestive heart failure, and hypertension. Patient has not established with a molecular physicist yet but was evaluated by Dr. Jaime during recent admission. He was discharged home yesterday. We have been asked to see the patient in consultation for CHF. Patient examined at the bedside. Patient was discharged home yesterday. He states he was feeling fine when he left but later in the evening he became very SOB. He also has significant anxiety. Patient was found to be in CHF and was started on IV lasix. He denies chest pain or pressure. * EKG reveals sinus mechanism with no signs of acute ischemia * Chest xray pulmonary edema and pleural fluid which is slightly worse than last examined consistent with worsening heart failure * Laboratory data: WBC 12.9. Hemoglobin 14.3. Platelet count 382. Sodium 134. Potassium 4.2. BUN 19. Creatinine 1.14. Troponin 0.070. 0.155. 0.215. ProBNP 1350. * Current home cardiac medications include Eliquis 5mg BID, lisinopril 5 mg daily, metoprolol succinate 50 mg daily, Lasix 20 mg daily * Most recent echocardiogram obtained on 04/24/2022 revealed ejection fraction 20-25% * Cardiac catheterization history: April 2022 revealing mild coronary artery disease including 30-40% proximal LAD and otherwise mild luminal irregularities. 04/28/2022 Patient examined this morning at the bedside. Patient reports improvement in his SOB. Denies chest pain or pressure. Anxiety better controlled today. PHYSICAL EXAM: VITAL SIGNS: Reviewed. GENERAL: Well-developed in no acute distress. HEENT: Head is normocephalic. Pupils are equal, round. Sclerae anicteric. Mucous membranes of the mouth are moist. Neck supple. No JVD or thyromegaly LUNGS: Respirations even and unlabored. Lungs diminished bilaterally HEART: Regular rate and rhythm. S1 and S2 heard. ABDOMEN: Soft. Nondistended. Nontender. EXTREMITIES: Normal range of motion. No clubbing or cyanosis. Peripheral pulses intact. Trace lower extremity edema NEUROLOGIC: Awake and alert. Oriented x 3. ASSESSMENT: Shortness of breath Acute hypoxic respiratory failure Acute on chronic heart failure with reduced ejection fraction, EF 20-25% Paroxysmal atrial fibrillation Nonischemic cardiomyopathy Mild nonobstructive coronary artery disease Hypertension Anxiety PLAN: Discontinue IV Lasix. Begin oral Lasix 40 mg twice a day Add Aldactone 25 mg daily Daily weights, accurate I&O, and monitoring of kidney function Increase activity as tolerated Possible discharge home tomorrow if patient remains stable Further recommendations pending patient's course Nurse practitioner note has been reviewed by physician. Signing provider agrees with the documented findings, assessment, and plan of care. Objective - Vital Signs Vital signs: Vital Signs Temp 97.7 F 04/28/22 08:00 Pulse 80 04/28/22 08:00 Resp 16 04/28/22 08:00 BP 173/79 04/28/22 08:00 Pulse Ox 98 04/28/22 08:00 FiO2 50 04/26/22 23:15 Intake & Output 04/27/22 04/28/22 04/28/22 18:59 06:59 18:59 Intake Total 436 Output Total 1380 1100 Balance -944 -1100 Weight 84.4 kg Intake: IV 20 Invasive Line 1 20 Oral 416 Output: Urine 1380 1100 Other: Voiding Method Toilet Toilet Urinal Urinal # Voids 1 1 - Labs CBC & Chem 7: 04/27/22 04:25 04/28/22 08:20 Labs: Abnormal Lab Results - Last 24 Hours (Table) 04/28/22 Range/Units 08:20 Creatinine 1.31 H (0.66-1.25) mg/dL Glucose 107 H (74-99) mg/dL
--- NOTE | 2022-04-28 14:43 | XR ---
EXAMINATION TYPE: XR chest 1V DATE OF EXAM: 04/28/2022 2:23 PM COMPARISON: Chest radiograph from two days prior. TECHNIQUE: XR chest 1V Portable AP radiograph of the chest. CLINICAL INDICATION:Male, 77 years old with history of chf; FINDINGS: Lungs/Pleura: There is no evidence of focal consolidation, or pneumothorax. Blunting of the costoph renic angles bilaterally. Pulmonary vascularity: Unremarkable. Heart/mediastinum: Cardiomediastinal silhouette is enlarged and stable. Musculoskeletal: No acute osseous pathology. IMPRESSION: Cardiomegaly, pulmonary vascular congestion and bilateral pleural effusions. Correlate with BNP for c ongestive heart failure.
[2022-04-28] MEDS: FUROSEMIDE 40 MG TAB PO SCH (16:25)
--- NOTE | 2022-04-29 05:40 | P.PN ---
Subjective Progress Note Date: 04/28/22 H&P Date: 04/27/22 Chief Complaint: Worsening shortness of breath This a 77-year-old gentleman discharged yesterday with acute CHF exacerbation, severely reduced EF of around 20-25%, new-onset nonischemic cardiomyopathy- etiology unclear, new onset atrial fibrillation, hypertension and multiple other medical issues, returned within a few hours of discharge. Reports after going up the stairs to his apartment, developed worsening shortness of breath, significant anxiety and return to the ER. Denies chest pain, palpitations. Chest x-ray reporting pulmonary edema slightly worsened from prior exam, consistent with worsening heart failure. ProBNP 1350, troponin 0.070, 0.155, 0.215. BUN 19, creatinine 1.14. IVpush diuretics initiated. WBC 12.9, h emoglobin 14.3, platelets 382. Sodium 134, potassium 4.2 magnesium 2.1. Prior cardiac catheterization reported mild CAD, 30-40% proximal LAD and otherwise mild luminal irregularities with elevated left-sided filling pressures. 04/28/2022 Patient is seen in follow-up this morning reports to feeling much better and breathing is improved. Cardiology evaluated the patient and has been transitio emmanuel to oral lasix for this evening. Patient was given a few doses of IV lasix. Patient reports his anxiety worsens drastically when having shortness of breath and reports to being better controlled today. Encouraged increased activity as tolerated and get up and walk around often. Patient reports he has been up and walking the halls frequently. Anticipates discharge in the am. Cardiology following. Review of systems: Constitutional: No reports of fatigue, fever, or chills, reports less anxiety Cardiovascular: No reports of chest pain or palpitations Respiratory: No reports of worsening shortness of breath GI: No reports of nausea, vomiting, or diarrhea : No reports of dysuria or retention Neurovascular: No reports of weakness or numbness All medications have been reviewed PHYSICAL EXAMINATION: General: alert and oriented X 3, sitting up in bed, no acute distress, eating lunch on room air HEENT: Normocephalic. Neck is supple. Pupils reactive. Neck: Supple, no JVD. CHEST EXAMINATION: Unlabored, diminished with faint crackles noted at the bases CARDIAC: Normal S1, S2 with no gallops. No murmurs ABDOMEN: Soft. Nontender, nondistended, no guarding. Bowel sounds present. Extremities: Trace edema. No clubbing or cyanosis. Neurological: Cranial nerves II through XII grossly intact, No focal deficits noted Skin: Warm and dry, No rash. Assessment: Exertional shortness of breath with elevated troponin level. Acute CHF, systolic dysfunction with severe LV global hypokinesis, EF 20-25 %, new-onset nonischemic cardiomyopathy-etiology unclear Acute hypoxic respiratory failure secondary to the above New-onset paroxysmal atrial fibrillation Hypertension BPH Anxiety, stress, panic attacks history of. Obesity, BMI 27.7 Plan: Continue on current medications with cardiology following. Being transitioned to oral lasix 40 bid today. Xanax as needed for anxiety, not to increase the dose per pcp Encouraged increased activity as tolerated with frequent up and walking Labs in the am to monitor WBC and kidney functions Anticipate discharge in 24 hours. The impression and plan of care has been dictated by Zoey Raygoza, Nurse Practitioner as directed. MD Renu I have performed a history and examination and MDM of this patient, discussed the same with the dictator, and agree with the dictator's assessment and plan as written ,documented as a scribe. Based on total visit time, I have performed more than 50% of the visit. Objective - Vital Signs Vital signs: Vital Signs Temp 97.7 F 04/28/22 08:00 Pulse 80 04/28/22 08:00 Resp 16 04/28/22 08:00 BP 173/79 04/28/22 08:00 Pulse Ox 98 04/28/22 08:00 FiO2 50 04/26/22 23:15 Intake & Output 04/27/22 04/28/22 04/28/22 18:59 06:59 18:59 Intake Total 436 Output Total 1380 1100 Balance -944 -1100 Weight 84.4 kg Intake: IV 20 Invasive Line 1 20 Oral 416 Output: Urine 1380 1100 Other: Voiding Method Toilet Toilet Urinal Urinal # Voids 1 1 - Labs CBC & Chem 7: 04/27/22 04:25 04/28/22 08:20 Labs: Abnormal Lab Results - Last 24 Hours (Table) 04/28/22 Range/Units 08:20 Creatinine 1.31 H (0.66-1.25) mg/dL Glucose 107 H (74-99) mg/dL
[2022-04-29] MEDS ORDERED: PANTOPRAZOLE 40 MG TABLET PO SCH (07:30)
[2022-04-29] MEDS: METOPROLOL SUCCINATE (ER) 25 MG TAB.ER.24H PO SCH ×2 (09:57→13:22)
[2022-04-29] MEDS: APIXABAN 5 MG TAB PO SCH (09:57)
[2022-04-29] MEDS: FINASTERIDE 5 MG TAB PO SCH (09:57)
[2022-04-29] MEDS: TAMSULOSIN 0.4 MG CAP.ER.24H PO SCH (09:57)
[2022-04-29] MEDS: SPIRONOLACTONE 25 MG TAB PO SCH (09:57)
[2022-04-29] MEDS: FUROSEMIDE 40 MG TAB PO SCH (09:57)
[2022-04-29] MEDS: lisinopriL 10 MG TAB PO SCH (09:57)
[2022-04-29 10:09] LABS: Basophils # (A) 0.1 k/uL (0-0.2); Basophils % (A) 1 %; Eosinophils # (A) 0.4 k/uL (0-0.7); Eosinophils % (A) 4 %; HCT 43.1 % (39.0-53.0); HGB 14.4 gm/dL (13.0-17.5); Lymphocytes # (A) 1.2 k/uL (1.0-4.8); Lymphocytes % (A) 14 %; MCH 31.2 pg (25.0-35.0); MCHC 33.3 g/dL (31.0-37.0); MCV 93.7 fL (80.0-100.0); Mean Platelet Volume 7.5; Monocytes # (A) 0.5 k/uL (0-1.0); Monocytes % (A) 6 %; Neutrophils # (A) 6.2 k/uL (1.3-7.7); Neutrophils % (A) 73 %; Platelet Count 388 k/uL (150-450); RDW 13.2 % (11.5-15.5); WBC 8.5 k/uL (3.8-10.6)
[2022-04-29 10:10] LABS: Calcium 8.9 mg/dL (8.4-10.2); Potassium 4.1 mmol/L (3.5-5.1)
[2022-04-29 12:42] VITALS: BP 163/78; PULSE 60; RESP 17; TEMP 97.9
[2022-04-29] MEDS: ALPRAZolam 0.5 MG TAB PO PRN (13:22)
--- NOTE | 2022-04-29 15:24 | P.PN ---
Subjective Progress Note Date: 04/29/22 Patient seen today with resting comfortably in bed doing well in no signs of acute distress. He denies chest pain or increased shortness of breath. He is on Eliquis for anticoagulation. Patient is cleared for discharge from a cardiac standpoint Patient will be discharged home on Aldactone Objective - Vital Signs Vital signs: Vital Signs Temp 97.5 F L 04/29/22 08:00 Pulse 64 04/29/22 08:00 Resp 18 04/29/22 08:00 BP 146/79 04/29/22 08:00 Pulse Ox 95 04/29/22 09:15 FiO2 50 04/26/22 23:15 Intake & Output 04/28/22 04/29/22 04/29/22 18:59 06:59 18:59 Intake Total 960 240 Output Total 1650 1150 Balance -690 -1150 240 Weight 84 kg Intake: Oral 960 240 Output: Urine 1650 1150 Other: Voiding Method Toilet Toilet Urinal Urinal # Voids 3 - Exam PHYSICAL EXAM: VITAL SIGNS: Reviewed. GENERAL: Well-developed in no acute distress. HEENT: Head is normocephalic. Pupils are equal, round. Sclerae anicteric. Mucous membranes of the mouth are moist. NECK: Supple. No JVD or thyromegaly RESPIRATORY: Respirations even and unlabored. Lungs diminished to auscultation bilaterally. CARDIO: Regular rate and rhythm. S1 and S2 heard. No murmur or gallops. EXTREMITIES: Normal range of motion. No clubbing or cyanosis. Peripheral pulses intact. Negative for bilateral lower extremity edema NEURO: Orientated to person, time, mood is appropriate - Labs CBC & Chem 7: 04/29/22 08:31 04/29/22 08:31 Labs: Abnormal Lab Results - Last 24 Hours (Table) 04/29/22 Range/Units 08:31 BUN 21 H (9-20) mg/dL Assessment and Plan Assessment: Shortness of breath Acute hypoxic respiratory failure Acute on chronic heart failure with reduced ejection fraction, EF 20-25% Paroxysmal atrial fibrillation Nonischemic cardiomyopathy Mild nonobstructive coronary artery disease Hypertension Anxiety Plan: Continue with Aldactone patient is cleared for discharge The above impression and plan of care have been discussed and directed by the signing physician. Angelina Lafleur, nurse practitioner, acting as scribe for signing physician.
--- NOTE | 2022-05-01 14:14 | P.DS ---
Providers Date of admission: 04/26/22 22:56 Expected date of discharge: 04/29/22 Attending physician: Christopher Gerber Consults: 04/26/22 22:56 Consult Physician Routine Consulting Provider: Tiera Mckeon Consult Reason/Comments: chf Do you want consulting provider notified?: Yes Primary care physician: Christopher Gerber Hospital Course: Final diagnosis Exertional shortness of breath with elevated troponin level. Acute CHF, systolic dysfunction with severe LV global hypokinesis, EF 20-25 %, new-onset nonischemic cardiomyopathy-etiology unclear Acute hypoxic respiratory failure secondary to the above New-onset paroxysmal atrial fibrillation Hypertension BPH Anxiety, stress, panic attacks history of. Obesity, BMI 27.7 Discharge disposition Patient is being discharged in a stable condition with guarded prognosis to home. Patient will follow-up with Dr. Gerber in the outpatient setting upon discharge. Patient is to follow-up with cardiology as scheduled. Total time taken is greater than 35 minutes. Hospital course This is a 77-year-old male who was recently admitted with increasing shortness of breath along with anxiety and being closely monitored. Patient follows with Dr. Gerber in the outpatient setting and was monitored with diuresis IV Lasix and cardiology following closely. Medications have been adjusted patient will continue on oral Lasix along with Aldactone and metoprolol has been adjusted to 3 times a day with close outpatient follow-up with cardiology. Patient currently on room air and walking multiple times and has been cleared by cardiology for discharge home. Patient is taking Xanax as he is having some increased anxiety whenever he has shortness of breath and discuss further about increasing dose with primary care provider. Currently no reports of chest pain, shortness of breath, or palpitations. Patient is afebrile. No reports of nausea or vomiting and patient is tolerating diet. Patient will be discharged home today. Physical exam: Gen: This is a 77-year-old male awake, alert and oriented 3, well-developed, well-nourished HEENT: Head is atraumatic, normocephalic. Pupils equal, round. Sclerae is anicteric. NECK: Supple. No JVD. No lymphadenopathy. No thyromegaly. LUNGS: Clear to auscultation. No wheezes or rhonchi. No intercostal retractions. HEART: Regular rate and rhythm. No murmur. ABDOMEN: Soft. Bowel sounds are present. No masses. No tenderness. EXTREMITIES: No pedal edema. No calf tenderness. NEUROLOGICAL: Patient is awake, alert and oriented x3. Cranial nerves 2 through 12 are grossly intact. Please refer to medication reconciliation sheet for a list of medications. The impression and plan of care has been dictated by Zoey Raygoza, Nurse Practitioner as directed. Dr. Derrick MD I have performed a history and examination and MDM of this patient, discussed the same with the dictator, and agree with the dictator's assessment and plan as written ,documented as a scribe. Based on total visit time, I have performed more than 50% of the visit. Patient Condition at Discharge: Fair Plan - Discharge Summary Discharge Rx Participant: No New Discharge Prescriptions: New Furosemide [Lasix] 40 mg PO BID@0900,1600 30 Days #60 tab Metoprolol Succinate (ER) [Toprol XL] 25 mg PO TID 30 Days #90 tab Spironolactone [Aldactone] 25 mg PO DAILY 30 Days #30 tablet Continue Tamsulosin HCl [Flomax] 0.4 mg PO DAILY Finasteride [Proscar] 5 mg PO DAILY ALPRAZolam [Xanax] 0.5 mg PO HS PRN PRN Reason: SLEEP Apixaban [Eliquis] 5 mg PO BID #60 tab Changed lisinopriL [Zestril] 10 mg PO DAILY #60 tab Discontinued Furosemide [Lasix] 20 mg PO DAILY #90 tab Metoprolol Succinate (ER) [Toprol XL] 50 mg PO DAILY #90 tab Discharge Medication List Finasteride [Proscar] 5 mg PO DAILY 04/07/15 [History] Tamsulosin HCl [Flomax] 0.4 mg PO DAILY 04/07/15 [History] ALPRAZolam [Xanax] 0.5 mg PO HS PRN 04/23/22 [History] Apixaban [Eliquis] 5 mg PO BID #60 tab 04/26/22 [Rx] Furosemide [Lasix] 40 mg PO BID@0900,1600 30 Days #60 tab 04/29/22 [Rx] Metoprolol Succinate (ER) [Toprol XL] 25 mg PO TID 30 Days #90 tab 04/29/22 [Rx] lisinopriL [Zestril] 10 mg PO DAILY #60 tab 04/29/22 [Rx] Spironolactone [Aldactone] 25 mg PO DAILY 30 Days #30 tablet 04/30/22 [Rx] Follow up Appointment(s)/Referral(s): Tiera Mckeon MD [STAFF PHYSICIAN] - 1 Week ([facility] office will be contacting you with appointment date and time.) Christopher Gerber DO [Primary Care Provider] - 05/03/22 11:40 am Ambulatory/Diagnostic Orders: Basic Metabolic Panel [LAB.AMB] Time Frame: 3 Days, Location: None Selected Patient Instructions/Handouts: Heart Failure (DC) Activity/Diet/Wound Care/Special Instructions: Activity limited until follow up follow up with pcp on discharge at scheduled appt follow up with cardiology in 1-2 weeks repeat labs in 2-3 days. follow heart healthy diet Discharge Disposition: HOME SELF-CARE
== END 2022-04-29 14:27 | disposition home or self-care (01) | DRG 291 ==
LOC: EC 21:54 → 3SCARD 22:56
PROVIDERS: ADMIT Family Medicine; ATTEND Family Medicine
PROC: 5A09357 Assistance with Respiratory Ventilation, Less than 24 Consecutive Hours, Continuous Positive Airway Pressure (ICD-10-PCS; principal; 2022-04-26)
DX: I11.0 Hypertensive heart disease with heart failure (principal); I50.23 Acute on chronic systolic (congestive) heart failure; J96.01 Acute respiratory failure with hypoxia; I42.8 Other cardiomyopathies; N40.0 Benign prostatic hyperplasia without lower urinary tract symptoms; I48.0 Paroxysmal atrial fibrillation; F41.0 Panic disorder [episodic paroxysmal anxiety]; E66.9 Obesity, unspecified; I25.10 Atherosclerotic heart disease of native coronary artery without angina pectoris; Z68.27 Body mass index [BMI] 27.0-27.9, adult; Z88.0 Allergy status to penicillin; Z79.899 Other long term (current) drug therapy; Z79.01 Long term (current) use of anticoagulants; Z87.891 Personal history of nicotine dependence
CPT/HCPCS: 36415; 71045; 80048; 80053; 83605; 83735; 83880; 84100; 84484; 85025; 85610; 85730; 93005; 94640; 94660; 94760; 96361; 96374; 96375; 99291

== ENCOUNTER → 2024-09-29 | Outpatient (CLI) | payer MEDICARE ==
--- NOTE | 2024-09-29 17:32 | XR ---
EXAMINATION TYPE: XR chest 2V DATE OF EXAM: 09/29/2024 4:54 PM COMPARISON: Chest radiographs from 04/28/2022. CLINICAL INDICATION: Male, 79 years old with history of R05.3 CHRONIC COUGH; [facility] TECHNIQUE: XR chest 2V Frontal and lateral views of the chest. FINDINGS: Lungs/Pleura: There is no evidence of pleural effusion, focal consolidation, or pneumothorax. Pulmonary vascularity: Unremarkable. Heart/mediastinum: Cardiomediastinal silhouette is enlarged. Atherosclerotic calcifications are seen in the aorta. Musculoskeletal: No acute osseous pathology. IMPRESSION: 1. No acute cardiopulmonary disease/process. 2. Posterior pleural effusions seen on lateral view. [facility], , 09/29/2024 5:29 PM
== END | disposition home or self-care (01) ==
LOC: RADXRMAIN 16:40
PROVIDERS: ATTEND Physician Assistant
DX: J90 Pleural effusion, not elsewhere classified (principal)
CPT/HCPCS: 71046